=== PATIENT | male | born 1940 | race Caucasian/White ===

== ENCOUNTER 2016-11-25 07:32 | Outpatient (CLI) | payer MEDICARE, OTHER ==
[2016-11-25] MEDS ORDERED: GADOBUTROL 7.5 MMOL/7.5 ML VIAL IVP ONE (08:47)
== END 2016-11-25 07:33 | disposition home or self-care (01) ==
DX: R27.0 Ataxia, unspecified (principal)
CPT/HCPCS: 70553; A9585

== ENCOUNTER 2017-04-12 09:49 | Outpatient (CLI) | payer MEDICARE, OTHER ==
[2017-04-12 14:05] LABS: BASOPHILS % (AUTO) 0.6 %; EOSINOPHILS # (AUTO) 0.2 10^3/uL (0.0-0.7); EOSINOPHILS % (AUTO) 3.3 %; HCT - HEMATOCRIT 42.6 % (42.0-52.0); HGB - HEMOGLOBIN 14.4 g/dL (14.0-18.0); LYMPHOCYTES # (AUTO) 1.7 10^3/uL (1.5-3.5); LYMPHOCYTES % (AUTO) 25.2 %; MEAN CORPUSCULAR HEMOGLOBIN 27.6 pg (27.0-31.0); MEAN CORPUSCULAR HGB CONC 33.8 g/dL (32.0-36.0); MEAN CORPUSCULAR VOLUME 81.8 fL (80.0-94.0); MEAN PLATELET VOLUME 9.2 fL (7.4-11.4); MONOCYTES # (AUTO) 0.9 10^3/uL (0.0-1.0); MONOCYTES % (AUTO) 13.2 %; NEUTROPHILS # (AUTO) 3.9 10^3/uL (1.5-6.6); NEUTROPHILS % (AUTO) 57.7 %; NUCLEATED RED BLOOD CELLS AUTO 0.1 /100WBC; RED BLOOD COUNT 5.21 10^6/uL (4.70-6.10); RED CELL DISTRIBUTION WIDTH 15.4 % (12.0-15.0); UNCORRECTED WHITE BLOOD COUNT 6.9 x10^3/uL; WHITE BLOOD COUNT 6.9 x10^3/uL (4.8-10.8)
[2017-04-12 14:26] LABS: ALBUMIN/GLOBULIN RATIO 0.9 (1.0-2.2); BILIRUBIN,TOTAL 0.6 mg/dL (0.2-1.0); BUN - BLOOD UREA NITROGEN 17 mg/dL (6-20); CALCIUM 9.4 mg/dL (8.5-10.3); CARBON DIOXIDE - CO2 28 mmol/L (21-32); CHLORIDE 99 mmol/L (101-111); CHOL/HDL RATIO 2.7 (<5.0); CHOLESTEROL 154 mg/dL; CREATININE 1.1 mg/dL (0.6-1.2); GFR - MDRD 65 (>89); GLUCOSE 93 mg/dL (70-100); HDL CHOLESTEROL 58 mg/dL; LDL/HDL RATIO 1.4 (<3.6); SODIUM 135 mmol/L (135-145); TOTAL PROTEIN 8.3 g/dL (6.7-8.2); TRIGLYCERIDES 61 mg/dL; URIC ACID 4.3 mg/dL (2.6-7.2); VLDL CHOLESTEROL 12 mg/dL
== END 2017-04-12 09:50 | disposition home or self-care (01) ==
LOC: LAB.WCP 09:49
PROVIDERS: ATTEND Family Medicine
DX: E04.2 Nontoxic multinodular goiter (principal); I10 Essential (primary) hypertension; N28.9 Disorder of kidney and ureter, unspecified; E78.00 Pure hypercholesterolemia, unspecified; E79.0 Hyperuricemia without signs of inflammatory arthritis and tophaceous disease
CPT/HCPCS: 36415; 80053; 80061; 84443; 84550; 85025

== ENCOUNTER 2017-04-13 16:25 | Outpatient (CLI) | payer MEDICARE, OTHER ==
[2017-04-13] MEDS ORDERED: IOPAMIDOL-300 100 ML VIAL IVP ONE (17:02)
--- NOTE | 2017-04-14 13:51 | CT Report ---
EXAM: CT CHEST EXAM DATE: 04/13/2017 05:09 PM. CLINICAL HISTORY: Chronic cough. Shortness of breath. COMPARISONS: Previous exam of 01/10/2008. TECHNIQUE: Routine helical CT imaging was performed through the chest. IV contrast: 100 cc of Isovue-300. Recons tructions: Coronal and sagittal. In accordance with CT protocol optimization, one or more of the following dose reduction techniques w ere utilized for this exam: automated exposure control, adjustment of mA and/or KV based on patient s ize, or use of iterative reconstructive technique. FINDINGS: Lungs/Pleura: There is increased parenchymal scarring and honeycombing present compared to previous e xam. Increased reticular nodular markings are present. No pleural effusions seen. Mediastinum: Persistent adenopathy with calcification seen about the mediastinum and bilateral lizy. Heart size is within normal limits, with trace pericardial effusion. Bones: Unremarkable. Visualized Abdomen: Bilateral renal cysts are seen. Other: None. IMPRESSION: 1. Worsening pulmonary findings of sarcoidosis, with increased scarring and fibrosis with persistent adenopathy with calcified lymph nodes in the mediastinum and bilateral lizy. 2. Bilateral renal cysts present. [facility] Referring Provider Line: [phone] SITE ID: [id number]
== END 2017-04-13 16:26 | disposition home or self-care (01) ==
LOC: DI 16:25
PROVIDERS: ATTEND Physician Assistant Medical
DX: D86.0 Sarcoidosis of lung (principal); I89.8 Other specified noninfective disorders of lymphatic vessels and lymph nodes; N28.1 Cyst of kidney, acquired
CPT/HCPCS: 71260; Q9967

== ENCOUNTER 2017-06-22 07:44 | Outpatient (CLI) | payer MEDICARE, OTHER ==
--- NOTE | 2017-06-22 09:46 | Ultrasound Report ---
RIGHT LEG VENOUS DUPLEX: 06/22/2017 CLINICAL INDICATION: Palpable abnormality in calf, question phlebitis. TECHNIQUE: Real-time sonographic vascular imaging was performed by the top spotter through the right lower extremity utilizing both color flow and Doppler spectral analysis. Multiple packaging sales representative [facility] images were saved for review. FINDINGS: A right lower extremity venous sonogram is performed revealing the common femoral, superfi cial femoral, profunda femoris, and popliteal veins to be adequately visualized without intraluminal defects. There is normal venous compression, augmentation, phasicity, and spontaneity of venous flow . In the calf, the visualized more cephalad portions of posterior tibial and peroneal veins are gaston sly compressible, without filling defects. IMPRESSION: NO EVIDENCE OF DEEP VENOUS THROMBOSIS. JOB #: [id number] EXT JOB #:[id number]
--- NOTE | 2017-06-22 11:51 | Ultrasound Report ---
RIGHT LEG ARTERIAL DUPLEX: 06/22/2017 CLINICAL INDICATION: Palpable abnormality, question phlebitis. TECHNIQUE: Real-time sonographic vascular imaging was performed by the property supervisor through the lower extremities utilizing both color-flow and Doppler spectral analysis. Multiple union representative static images were saved for review. RIGHT SIDE SITE PSV WAVEFORM STEN SENIOR GAME DESIGNER 86 triphasic PSFA 82 triphasic MSFA 72 triphasic DSFA 89 triphasic PFA 64 biphasic POP 64 triphasic ALEXANDER 35 triphasic CEMENT [place]ON MAINTENANCE 54 triphasic PER 75 triphasic DPA 24 triphasic TECHNIQUE: Real-time scanning was performed. FINDINGS: Right leg: Waveforms are predominantly triphasic. There is no evidence of a focal velocity increase to suggest a hemodynamically significant stenosis. Scanning of the region of the palpable abnormality identified by the patient in the right calf demonstrates an avascular 2.5 x 0.8 x 0.4 cm structure that originates in the dermis, likely representing a sebaceous cyst. IMPRESSION: NO EVIDENCE OF A HEMODYNAMICALLY SIGNIFICANT ARTERIAL STENOSIS IN THE RIGHT LEG. LIKELY SEBACEOUS CYST ACCOUNTING FOR THE PALPABLE ABNORMALITY. MTDD
== END 2017-06-22 07:45 | disposition home or self-care (01) ==
LOC: DI 07:44
PROVIDERS: ATTEND Physician Assistant Medical
DX: I80.9 Phlebitis and thrombophlebitis of unspecified site (principal)

== ENCOUNTER 2017-07-27 08:13 | Outpatient (CLI) | payer MEDICARE, OTHER | END 2017-07-27 08:14 | disposition home or self-care (01) | LOC: DI 08:13 | PROVIDERS: ATTEND Physician Assistant Medical | DX: R06.09 Other forms of dyspnea (principal); R60.0 Localized edema | CPT/HCPCS: 93306 ==

== ENCOUNTER 2017-07-29 10:00 | Outpatient (CLI) | payer MEDICARE, OTHER ==
[2017-07-29 10:13] LABS: HCT - HEMATOCRIT 39.5 % (42.0-52.0); HGB - HEMOGLOBIN 13.4 g/dL (14.0-18.0); MEAN CORPUSCULAR HEMOGLOBIN 27.8 pg (27.0-31.0); MEAN CORPUSCULAR HGB CONC 34.1 g/dL (32.0-36.0); MEAN CORPUSCULAR VOLUME 81.5 fL (80.0-94.0); MEAN PLATELET VOLUME 7.4 fL (7.4-11.4); RED BLOOD COUNT 4.84 10^6/uL (4.70-6.10); RED CELL DISTRIBUTION WIDTH 14.4 % (12.0-15.0); WHITE BLOOD COUNT 9.3 x10^3/uL (4.8-10.8)
[2017-07-29 10:39] LABS: CALCIUM 9.1 mg/dL (8.5-10.3); CREATININE 1.1 mg/dL (0.6-1.2); POTASSIUM 3.8 mmol/L (3.5-5.0)
== END 2017-07-29 10:01 | disposition home or self-care (01) ==
LOC: LAB 10:00
PROVIDERS: ATTEND Physician Assistant Medical
DX: R60.0 Localized edema (principal); R06.09 Other forms of dyspnea
CPT/HCPCS: 36415; 80048; 83880

== ENCOUNTER 2018-03-18 18:44 | Outpatient (CLI) | payer MEDICARE, OTHER | END 2018-03-18 18:45 | disposition short-term general hospital (02) | LOC: EMS 18:44 | PROVIDERS: ATTEND Surgery | DX: R07.9 Chest pain, unspecified (principal); R06.02 Shortness of breath; R53.1 Weakness | CPT/HCPCS: A0425; A0427; A0888 ==

== ENCOUNTER 2018-04-25 14:05 | Outpatient (CLI) | payer MEDICARE, OTHER ==
[2018-04-25 18:53] LABS: BASOPHILS % (AUTO) 0.1 %; EOSINOPHILS % (AUTO) 3.1 %; LYMPHOCYTES % (AUTO) 10.6 %; MEAN CORPUSCULAR HGB CONC 31.9 g/dL (32.0-36.0); MEAN CORPUSCULAR VOLUME 81.6 fL (80.0-94.0); MEAN PLATELET VOLUME 7.9 fL (7.4-11.4); MONOCYTES % (AUTO) 11.1 %; NEUTROPHILS % (AUTO) 75.1 %; PLT - PLATELET COUNT 210 10^3/uL (130-450); RED BLOOD COUNT 4.61 10^6/uL (4.70-6.10); RED CELL DISTRIBUTION WIDTH 16.9 % (12.0-15.0); WHITE BLOOD COUNT 14.1 x10^3/uL (4.8-10.8)
[2018-04-25 19:05] LABS: ABNORMAL LYMPHS % (MANUAL) 0 %; BAND NEUTROPHILS % (MANUAL) 0 %
[2018-04-25 19:11] LABS: ALBUMIN 3.2 g/dL (3.2-5.5); ALBUMIN/GLOBULIN RATIO 0.9 (1.0-2.2); BILIRUBIN,TOTAL 0.5 mg/dL (0.2-1.0); CALCIUM 8.9 mg/dL (8.5-10.3); TOTAL PROTEIN 6.7 g/dL (6.7-8.2); URIC ACID 4.1 mg/dL (2.6-7.2)
[2018-04-25 19:24] LABS: EOSINOPHILS # (MANUAL) 0.3 10^3/uL (0-0.7); LYMPHOCYTES # (MANUAL) 1.1 10^3/uL (1.5-3.5); LYMPHOCYTES % (MANUAL) 8 %; MONOCYTES # (MANUAL) 0.8 10^3/uL (0.0-1.0); NEUTROPHILS # (MANUAL) 11.8 10^3/uL (1.5-6.6); NEUTROPHILS % (MANUAL) 84 %
[2018-04-25 19:25] LABS: DIFFERENTIAL COMMENT MANUAL DIFFERENTIAL; PLATELET ESTIMATE, MANUAL NORMAL (130-450,000) (NORMAL); PLATELET MORPHOLOGY NORMAL APPEARANCE (NORMAL); RBC MORPHOLOGY (MULTIPLE) 1+ ANISOCYTOSIS (NORMAL)
== END 2018-04-25 14:06 | disposition home or self-care (01) ==
LOC: LAB.WCP 14:05
PROVIDERS: ATTEND Family Medicine
DX: M25.561 Pain in right knee (principal)
CPT/HCPCS: 36415; 80053; 84550; 85025

== ENCOUNTER 2018-08-30 08:00 | Outpatient (CLI) | payer MEDICARE, OTHER ==
[2018-08-30 19:23] LABS: CALCIUM 8.9 mg/dL (8.5-10.3)
== END 2018-08-30 08:01 | disposition home or self-care (01) ==
LOC: LAB.WCP 08:00
PROVIDERS: ATTEND Physician Assistant
DX: R60.0 Localized edema (principal)
CPT/HCPCS: 36415; 80048

== ENCOUNTER 2019-03-11 14:08 | Outpatient (CLI) | payer MEDICARE, OTHER ==
[2019-03-11 19:17] LABS: BASOPHILS % (AUTO) 0.2 %; EOSINOPHILS % (AUTO) 0.4 %; LYMPHOCYTES # (AUTO) 1.4 10^3/uL (1.5-3.5); LYMPHOCYTES % (AUTO) 12.5 %; MEAN CORPUSCULAR HEMOGLOBIN 22.1 pg (27.0-31.0); MEAN CORPUSCULAR HGB CONC 30.9 g/dL (32.0-36.0); MEAN CORPUSCULAR VOLUME 71.5 fL (80.0-94.0); MEAN PLATELET VOLUME 8.5 fL (7.4-11.4); MONOCYTES # (AUTO) 0.7 10^3/uL (0.0-1.0); MONOCYTES % (AUTO) 6.4 %; NEUTROPHILS % (AUTO) 80.5 %; PLT - PLATELET COUNT 201 10^3/uL (130-450); RED BLOOD COUNT 4.97 10^6/uL (4.70-6.10); RED CELL DISTRIBUTION WIDTH 19.8 % (12.0-15.0); WHITE BLOOD COUNT 11.2 x10^3/uL (4.8-10.8)
[2019-03-11 19:41] LABS: ALBUMIN 3.3 g/dL (3.2-5.5); ALBUMIN/GLOBULIN RATIO 0.8 (1.0-2.2); ALKALINE PHOSPHATASE 48 IU/L (42-121); ALT ALANINE AMINOTRANSFERASE < 10 IU/L (10-60); AST ASPARTATE AMINOTRANSFERASE 20 IU/L (10-42); BILIRUBIN,TOTAL 0.4 mg/dL (0.2-1.0); BUN - BLOOD UREA NITROGEN 15 mg/dL (6-20); CALCIUM 8.8 mg/dL (8.5-10.3); CARBON DIOXIDE - CO2 28 mmol/L (21-32); CHLORIDE 98 mmol/L (101-111); GFR - MDRD 72 (>89); GLUCOSE 130 mg/dL (70-100); SODIUM 138 mmol/L (135-145); TOTAL PROTEIN 7.7 g/dL (6.7-8.2); URIC ACID 4.9 mg/dL (2.6-7.2)
== END 2019-03-11 14:09 | disposition home or self-care (01) ==
LOC: LAB.WCP 14:08
PROVIDERS: ATTEND Family Medicine
DX: I10 Essential (primary) hypertension (principal); D86.9 Sarcoidosis, unspecified
CPT/HCPCS: 36415; 80053; 84443; 84550; 85025

== ENCOUNTER 2019-03-14 08:00 | Outpatient (CLI) | payer MEDICARE, OTHER ==
[2019-03-14 19:45] LABS: % IRON SATURATION 5 % (20-50); IRON 17 ug/dL (45-182); TOTAL IRON BINDING CAPACITY 336 ug/dL (250-450); TRANSFERRIN 240 mg/dL (180-329)
== END 2019-03-14 23:59 | disposition home or self-care (01) ==
LOC: LAB.WCP 08:00
PROVIDERS: ATTEND Family Medicine
DX: D50.9 Iron deficiency anemia, unspecified (principal)
CPT/HCPCS: 36415; 82728; 83540; 84466

== ENCOUNTER 2019-03-28 13:56 | Outpatient (CLI) | payer MEDICARE, OTHER ==
--- NOTE | 2019-03-28 15:28 | XRAY Report ---
Reason: COUGH Procedure Date: 03/28/2019 Accession Number: [id number] / [id number] Procedure: WCP - Chest 2 View X-Ray CPT Code: 35710 FULL RESULT: EXAM: CHEST RADIOGRAPHY EXAM DATE: 03/28/2019 02:09 PM. CLINICAL HISTORY: Cough. COMPARISON: CHEST W/ 04/13/2017 4:58 PM. TECHNIQUE: 2 views. FINDINGS: Lungs/Pleura: Increased interstitial lung markings most pronounced at the upper right lung corresponds to known fibrotic lung disease. Soft tissue fullness at the right hilum is again seen, is difficult to determine whether this has increased accounting for differences in modality. No pleural effusion is detected. No pneumothorax. Underlying pneumonia is difficult to exclude. Mediastinum: The cardiomediastinal silhouette is not enlarged and stable in contour. Other: None. IMPRESSION: Fibrotic lung disease with persistent soft tissue fullness of the right hilum. Given that acute pneumonia as well as development of a mass in the right hilar region are difficult to exclude, recommend consideration for chest CT. [facility]
== END 2019-03-28 13:57 | disposition home or self-care (01) ==
LOC: DI.WCP 13:56
PROVIDERS: ATTEND Family Medicine
DX: J84.10 Pulmonary fibrosis, unspecified (principal)
CPT/HCPCS: 71046

== ENCOUNTER 2019-03-31 07:37 | Outpatient (CLI) | payer MEDICARE, OTHER ==
[2019-03-31] MEDS ORDERED: IOVERSOL 320 100 ML VIAL IVP ONE ×3 (07:38→12:11)
--- NOTE | 2019-03-31 10:09 | CT Report ---
Reason: LUNG MASS Procedure Date: 03/31/2019 Accession Number: [id number] / [id number] Procedure: CT - CHEST W CPT Code: FULL RESULT: EXAM: CT CHEST EXAM DATE: 03/31/2019 08:26 AM. CLINICAL HISTORY: LUNG MASS. History of sarcoidosis COMPARISONS: CHEST W/ 04/13/2017 4:58 PM CHEST 2 VIEW 03/28/2019 1:48 PM COMPLETE 07/27/2017 8:32 AM. TECHNIQUE: Routine helical CT imaging was performed through the chest. IV contrast: None. Reconstructions: Coronal and sagittal. In accordance with CT protocol optimization, one or more of the following dose reduction techniques were utilized for this exam: automated exposure control, adjustment of mA and/or KV based on patient size, or use of iterative reconstructive technique. FINDINGS: Lungs/Pleura: Bilateral areas of honeycombing, bronchiectasis, septal thickening. There are bilateral areas of linear banding. Chronic atelectasis in the right middle lobe. Areas of scarring bilaterally. Groundglass areas bilaterally. Subpleural reticulations. Findings are more prominent in the upper lung culver. No significant change since previous. No effusion. No pneumothorax. Mediastinum: Large mediastinal lymph nodes with calcifications including 2.2 cm prevascular, 1.7 cm right paratracheal, 2.4 cm precarinal, 2.8 cm azygos esophageal recess lymph nodes. Bilateral calcified hilar lymph nodes. Enlarged pulmonary artery suggestive of pulmonary artery hypertension. Moderate to severe coronary artery calcifications. No pericardial effusion. Bones: DJD spine Visualized Abdomen: Bilateral renal cysts 4.8 cm right, 3.2 cm left. Other: None. IMPRESSION: 1. 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 2. Bilateral renal cysts [facility]
== END 2019-03-31 07:38 | disposition home or self-care (01) ==
LOC: DI 07:37
PROVIDERS: ATTEND Family Medicine
DX: D86.9 Sarcoidosis, unspecified (principal); J84.10 Pulmonary fibrosis, unspecified; R59.0 Localized enlarged lymph nodes; N28.1 Cyst of kidney, acquired
CPT/HCPCS: 71260; Q9967

== ENCOUNTER 2019-05-08 09:00 | Outpatient (CLI) | payer MEDICARE, OTHER ==
[2019-05-08 12:51] LABS: T4 (THYROXINE) 8.62 ug/dL (6.09-12.23)
[2019-05-08 12:55] LABS: THYROID STIMULATING HORMONE 1.13 uIU/mL (0.34-5.60)
== END 2019-05-08 09:01 | disposition home or self-care (01) ==
LOC: LAB.WCP 09:00
PROVIDERS: ATTEND Family Medicine
DX: R22.1 Localized swelling, mass and lump, neck (principal); E04.2 Nontoxic multinodular goiter; I10 Essential (primary) hypertension
CPT/HCPCS: 36415; 84436; 84443; 84481

== ENCOUNTER 2019-05-10 13:13 | Outpatient (CLI) | payer MEDICARE, OTHER ==
--- NOTE | 2019-05-12 12:32 | Ultrasound Report ---
Reason: NECK SWELLING Procedure Date: 05/10/2019 Accession Number: [id number] / [id number] Procedure: US - Head or Neck Soft Tissue CPT Code: FULL RESULT: EXAM: THYROID ULTRASOUND EXAM DATE: 05/10/2019 02:15 PM. CLINICAL HISTORY: Neck swelling. COMPARISON: CHEST W/ 03/31/2019 8:25 AM. TECHNIQUE: Real time sonographic imaging of the thyroid was performed by the program services assistant. Multiple sales representative [employer] static images were saved for review. FINDINGS: THYROID GLAND: Right Lobe: 3.7 x 2.0 x 1.4 cm, volume 5.1 cc. Parenchymal background demonstrates mildly heterogeneous echotexture. Right Lobe Nodules: 0.3 cm upper pole cyst, 0.5 x 0.4 x 0.5 cm hypoechoic well-circumscribed midpole nodule, 0.3 hypoechoic lower pole nodule, possibly cyst. Left Lobe: 4.3 x 2.0 x 1.7 cm, volume 6.8 cc. Parenchymal background demonstrates mildly heterogeneous echotexture. Left Lobe Nodules: 1.1 x 0.6 x 0.9 cm cyst. 0.2 cm hypoechoic cyst versus nodule and inferior pole 0.3 cm hypoechoic nodule. Isthmus: 0.7 cm AP. Isthmic Nodules: None. LYMPH NODES: No adenopathy demonstrated in the central or lateral compartment. OTHER: None. IMPRESSION: Very low suspicion and low suspicion nodules as above do not warrant tissue sampling by FNA at this time. Management recommendations are based on 2015 [place] [employer] Management Guidelines for Adult Patients with Thyroid Nodules and Differentiated Thyroid Cancer. [facility]
== END 2019-05-10 13:14 | disposition home or self-care (01) ==
LOC: DI 13:13
PROVIDERS: ATTEND Family Medicine
DX: E04.1 Nontoxic single thyroid nodule (principal)
CPT/HCPCS: 76536

== ENCOUNTER 2020-05-13 15:22 | Outpatient (CLI) | payer MEDICARE, OTHER ==
--- NOTE | 2020-05-13 16:22 | XRAY Report ---
Reason: SHORTNESS OF BREATH Procedure Date: 05/13/2020 Accession Number: [id number] / [id number] Procedure: WCP - Chest 2 View X-Ray CPT Code: 47648 Final Report FULL RESULT: PROCEDURE: Chest 2 View X-Ray INDICATIONS: SHORTNESS OF BREATH TECHNIQUE: 2 view(s) of the chest. COMPARISON: Chest x-ray examination dated 03.28.19 FINDINGS: Surgical changes and devices: None. Lungs and pleura: No pleural effusions or pneumothorax. There is moderate bilateral upper lobe predominant interstitial pulmonary opacity, as before. No definite superimposed acute infiltrate. Mediastinum: Mediastinal contours are normal. Heart size is normal. Bones and chest wall: No suspicious bony abnormalities. Soft tissues appear unremarkable. IMPRESSION: 1. Moderate chronic interstitial lung disease. 2. No acute process. Reviewed by: Serg Dominguez MD on 05/13/2020 4:21 PM PDT Approved by: Serg Dominguez MD on 05/13/2020 4:21 PM PDT Station ID: [id number]
== END 2020-05-13 23:59 | disposition home or self-care (01) ==
LOC: DI.WCP 15:22
PROVIDERS: ATTEND Nurse Practitioner Family
DX: J84.9 Interstitial pulmonary disease, unspecified (principal)
CPT/HCPCS: 36415; 71046; 80053; 83880; 85025

== ENCOUNTER 2020-05-26 10:58 | Outpatient (CLI) | payer MEDICARE, OTHER ==
[2020-05-26 18:43] LABS: BASOPHILS % (AUTO) 0.5 %; EOSINOPHILS # (AUTO) 0.3 10^3/uL (0.0-0.7); EOSINOPHILS % (AUTO) 3.7 %; HGB - HEMOGLOBIN 12.6 g/dL (14.0-18.0); LYMPHOCYTES # (AUTO) 1.7 10^3/uL (1.5-3.5); LYMPHOCYTES % (AUTO) 19.3 %; MEAN CORPUSCULAR HEMOGLOBIN 25.4 pg (27.0-31.0); MEAN CORPUSCULAR HGB CONC 30.7 g/dL (32.0-36.0); MEAN CORPUSCULAR VOLUME 82.5 fL (80.0-94.0); MEAN PLATELET VOLUME 10.3 fL (7.4-11.4); MONOCYTES # (AUTO) 1.1 10^3/uL (0.0-1.0); MONOCYTES % (AUTO) 11.8 %; NEUTROPHILS # (AUTO) 5.7 10^3/uL (1.5-6.6); NEUTROPHILS % (AUTO) 64.1 %; PLT - PLATELET COUNT 243 10^3/uL (130-450); RED BLOOD COUNT 4.97 10^6/uL (4.70-6.10); RED CELL DISTRIBUTION WIDTH 15.5 % (12.0-15.0); WHITE BLOOD COUNT 8.9 x10^3/uL (4.8-10.8)
[2020-05-26 19:27] LABS: ALBUMIN 3.3 g/dL (3.2-5.5); ALBUMIN/GLOBULIN RATIO 0.8 (1.0-2.2); ALKALINE PHOSPHATASE 49 IU/L (42-121); ALT ALANINE AMINOTRANSFERASE < 10 IU/L (10-60); AST ASPARTATE AMINOTRANSFERASE 17 IU/L (10-42); BILIRUBIN,TOTAL 0.6 mg/dL (0.2-1.0); BUN - BLOOD UREA NITROGEN 13 mg/dL (6-20); CALCIUM 8.8 mg/dL (8.5-10.3); CARBON DIOXIDE - CO2 32 mmol/L (21-32); CHLORIDE 98 mmol/L (101-111); GLUCOSE 93 mg/dL (70-100); SODIUM 139 mmol/L (135-145); TOTAL PROTEIN 7.6 g/dL (6.7-8.2)
== END 2020-05-26 23:59 | disposition home or self-care (01) ==
LOC: LAB.WCP 10:58
PROVIDERS: ATTEND Nurse Practitioner Family
DX: I10 Essential (primary) hypertension (principal); D50.9 Iron deficiency anemia, unspecified; R60.0 Localized edema
CPT/HCPCS: 36415; 80053; 83880; 85025

== ENCOUNTER 2020-07-23 09:03 | Outpatient (CLI) | payer MEDICARE, OTHER ==
[2020-07-23 11:34] LABS: HGB - HEMOGLOBIN 13.3 g/dL (14.0-18.0); MEAN CORPUSCULAR HEMOGLOBIN 26.7 pg (27.0-31.0); MEAN CORPUSCULAR HGB CONC 32.8 g/dL (32.0-36.0); MEAN CORPUSCULAR VOLUME 81.2 fL (80.0-94.0); RED BLOOD COUNT 4.99 10^6/uL (4.70-6.10); RED CELL DISTRIBUTION WIDTH 15.9 % (12.0-15.0); WHITE BLOOD COUNT 8.7 x10^3/uL (4.8-10.8)
[2020-07-23 12:14] LABS: CALCIUM 8.6 mg/dL (8.5-10.3)
== END 2020-07-23 23:59 | disposition home or self-care (01) ==
LOC: LAB.WCP 09:03
PROVIDERS: ATTEND Family Medicine
DX: R06.09 Other forms of dyspnea (principal)
CPT/HCPCS: 36415; 80048; 83880; 85027

== ENCOUNTER 2021-03-22 08:00 | Outpatient (CLI) | payer MEDICARE, OTHER ==
[2021-03-22 12:10] LABS: BASOPHILS # (AUTO) 0.1 10^3/uL (0.0-0.1); BASOPHILS % (AUTO) 0.6 %; EOSINOPHILS # (AUTO) 0.3 10^3/uL (0.0-0.7); HCT - HEMATOCRIT 43.8 % (42.0-52.0); HGB - HEMOGLOBIN 13.3 g/dL (14.0-18.0); LYMPHOCYTES # (AUTO) 1.7 10^3/uL (1.5-3.5); LYMPHOCYTES % (AUTO) 22.5 %; MEAN CORPUSCULAR HEMOGLOBIN 24.2 pg (27.0-31.0); MEAN CORPUSCULAR HGB CONC 30.4 g/dL (32.0-36.0); MEAN CORPUSCULAR VOLUME 79.6 fL (80.0-94.0); MEAN PLATELET VOLUME 10.6 fL (7.4-11.4); MONOCYTES # (AUTO) 0.9 10^3/uL (0.0-1.0); MONOCYTES % (AUTO) 12.2 %; NEUTROPHILS # (AUTO) 4.6 10^3/uL (1.5-6.6); NEUTROPHILS % (AUTO) 60.3 %; PLT - PLATELET COUNT 197 10^3/uL (130-450); RED CELL DISTRIBUTION WIDTH 17.8 % (12.0-15.0); WHITE BLOOD COUNT 7.7 x10^3/uL (4.8-10.8)
[2021-03-22 12:28] LABS: ALBUMIN 3.6 g/dL (3.2-5.5); ALBUMIN/GLOBULIN RATIO 0.9 (1.0-2.2); ALKALINE PHOSPHATASE 47 IU/L (42-121); ALT ALANINE AMINOTRANSFERASE 11 IU/L (10-60); AST ASPARTATE AMINOTRANSFERASE 21 IU/L (10-42); BILIRUBIN,TOTAL 0.6 mg/dL (0.2-1.0); BUN - BLOOD UREA NITROGEN 12 mg/dL (6-20); CALCIUM 9.1 mg/dL (8.5-10.3); CARBON DIOXIDE - CO2 34 mmol/L (21-32); CHLORIDE 99 mmol/L (101-111); CHOLESTEROL 188 mg/dL; CREATININE 0.9 mg/dL (0.6-1.2); GFR - MDRD 81 (>89); GLUCOSE 86 mg/dL (70-100); HDL CHOLESTEROL 95 mg/dL; SODIUM 142 mmol/L (135-145); TOTAL PROTEIN 7.6 g/dL (6.7-8.2); TRIGLYCERIDES 37 mg/dL; URIC ACID 4.6 mg/dL (2.6-7.2)
[2021-03-22 12:37] LABS: THYROID STIMULATING HORMONE 1.09 uIU/mL (0.34-5.60)
[2021-03-22 12:40] LABS: ESTIMATED AVERAGE GLUCOSE 120 mg/dL (70-100); HEMOGLOBIN A1c% 5.8 % (4.27-6.07)
[2021-03-22 12:49] LABS: CREATININE,URINE 48.6 mg/dL; MICROALBUM/CREATININE RATIO,UR 47.3 ug/mg (<30.0); MICROALBUMIN,URINE 2.3 mg/dL (0-300.0)
== END 2021-03-22 23:59 | disposition home or self-care (01) ==
LOC: LAB.WCP 08:00
PROVIDERS: ATTEND Internal Medicine
DX: I10 Essential (primary) hypertension (principal); E79.0 Hyperuricemia without signs of inflammatory arthritis and tophaceous disease; D86.9 Sarcoidosis, unspecified; E04.2 Nontoxic multinodular goiter; G62.9 Polyneuropathy, unspecified; Z79.52 Long term (current) use of systemic steroids
CPT/HCPCS: 36415; 80053; 80061; 82043; 82306; 82570; 82607; 83036; 83721; 84443; 84550; 85025

== ENCOUNTER 2021-06-27 10:08 | Outpatient (CLI) | payer MEDICARE, OTHER | END 2021-06-27 10:09 | disposition short-term general hospital (02) | LOC: EMS 10:08 | DX: R06.82 Tachypnea, not elsewhere classified (principal) | CPT/HCPCS: A0425; A0429 ==

== ENCOUNTER 2022-03-13 08:18 | Outpatient (CLI) | payer MEDICARE, OTHER ==
[2022-03-13 12:19] LABS: BASOPHILS % (AUTO) 0.2 %; EOSINOPHILS # (AUTO) 0.1 10^3/uL (0.0-0.7); EOSINOPHILS % (AUTO) 1.2 %; HGB - HEMOGLOBIN 13.1 g/dL (14.0-18.0); LYMPHOCYTES # (AUTO) 1.6 10^3/uL (1.5-3.5); LYMPHOCYTES % (AUTO) 19.4 %; MEAN CORPUSCULAR HEMOGLOBIN 26.2 pg (27.0-31.0); MEAN CORPUSCULAR HGB CONC 29.1 g/dL (32.0-36.0); MEAN PLATELET VOLUME 11.8 fL (7.4-11.4); MONOCYTES # (AUTO) 0.9 10^3/uL (0.0-1.0); MONOCYTES % (AUTO) 10.2 %; NEUTROPHILS # (AUTO) 5.8 10^3/uL (1.5-6.6); NEUTROPHILS % (AUTO) 68.8 %; PLT - PLATELET COUNT 148 10^3/uL (130-450); RED CELL DISTRIBUTION WIDTH 14.5 % (12.0-15.0); WHITE BLOOD COUNT 8.4 x10^3/uL (4.8-10.8)
[2022-03-13 12:43] LABS: THYROID STIMULATING HORMONE 0.99 uIU/mL (0.34-5.60)
[2022-03-13 13:16] LABS: ESTIMATED AVERAGE GLUCOSE 128 mg/dL (70-100); HEMOGLOBIN A1c% 6.1 % (4.27-6.07)
[2022-03-13 13:49] LABS: ALBUMIN 3.2 g/dL (3.2-5.5); ALBUMIN/GLOBULIN RATIO 0.8 (1.0-2.2); ALKALINE PHOSPHATASE 52 IU/L (42-121); ALT ALANINE AMINOTRANSFERASE < 10 IU/L (10-60); AST ASPARTATE AMINOTRANSFERASE 16 IU/L (10-42); BILIRUBIN,TOTAL 0.5 mg/dL (0.2-1.0); BUN - BLOOD UREA NITROGEN 12 mg/dL (6-20); CHLORIDE 90 mmol/L (101-111); CHOL/HDL RATIO 2.3 (<5.0); CHOLESTEROL 159 mg/dL; CREATININE 0.9 mg/dL (0.6-1.2); GFR - MDRD 81 (>89); GLUCOSE 101 mg/dL (70-100); HDL CHOLESTEROL 68 mg/dL; LDL CHOLESTEROL,CALCULATED 82 mg/dL; LDL/HDL RATIO 1.2 (<3.6); POTASSIUM 4.1 mmol/L (3.5-5.0); SODIUM 141 mmol/L (135-145); TRIGLYCERIDES 43 mg/dL; VLDL CHOLESTEROL 9 mg/dL
[2022-03-13 13:51] LABS: CARBON DIOXIDE - CO2 41 mmol/L (21-32)
== END 2022-03-13 08:19 | disposition home or self-care (01) ==
LOC: LAB.N 08:18
PROVIDERS: ATTEND Internal Medicine
DX: I10 Essential (primary) hypertension (principal); D50.9 Iron deficiency anemia, unspecified; E04.2 Nontoxic multinodular goiter; E78.5 Hyperlipidemia, unspecified; Z79.52 Long term (current) use of systemic steroids; D86.0 Sarcoidosis of lung
CPT/HCPCS: 36415; 80053; 80061; 82306; 83036; 83721; 84443; 85025

== ENCOUNTER 2022-09-10 00:31 | Outpatient (CLI) | payer MEDICARE, OTHER | END 2022-09-10 00:32 | disposition short-term general hospital (02) | LOC: EMS 00:31 | DX: R06.02 Shortness of breath (principal) | CPT/HCPCS: A0425; A0427 ==

== ENCOUNTER 2022-09-11 11:21 | Outpatient (CLI) | payer MEDICARE, OTHER | END 2022-09-11 11:22 | disposition critical access hospital (66) | LOC: EMS 11:21 | DX: R40.0 Somnolence (principal); R06.82 Tachypnea, not elsewhere classified; R09.89 Other specified symptoms and signs involving the circulatory and respiratory systems; I49.9 Cardiac arrhythmia, unspecified; R61 Generalized hyperhidrosis; R60.0 Localized edema; Z99.81 Dependence on supplemental oxygen | CPT/HCPCS: A0425; A0427 ==

== ENCOUNTER 2022-09-11 11:23 | Emergency (ER) | payer MEDICARE, OTHER ==
--- OUTSIDE RECORDS SUMMARY | 2022-09-11 11:29 | EXTERNAL MEDICAL SUMMARY RPT | Continuity of Care Document ---
:1940 Author Organization [facility] Address [address] [place] [address] Phone Allergies and Intolerances date description facility type (no date) No Known Drug Allergies [facility] (unkn own) Encounters No information. Functional Status No information. Immunizations No information. Medications No information. Problems No information. Procedures No information. Results/Labs test date author facility value unit interpret ation Result panel 1 (unknown) (no (unknown) (unknown) (no value) (units (unk nown) date) unknown) (unknown) (no (unknown) (unknown) [id number] (units (unkno wn) date) unknown) (unknown) (no (unknown) (unknown) 12/08/21 the (units (un known) date) degree of unknown) interstitial lung disease does not appear to have (unknown) (no (unknown) (unknown) 09/10/22 (units (unkno wn) date) unknown) (unknown) (no (unknown) (unknown) [address] [place] [address] (units (unknown) date) unknown) (unknown) (no (unknown) (unknown) Accession (units (unkn own) date) Number: unknown) [id number] (unknown) (no (unknown) (unknown) Age/Sex: 82 / M (units (unknown) date) Date of Service: unknown) (unknown) (no (unknown) (unknown) [place], [place] (units ( unknown) date) [id number] unknown) (unknown) (no (unknown) (unknown) Approved by: (units (u nknown) date) brandie Logan M.D. on 09/10/2022 at 1:58 (unknown) (no (unknown) (unknown) Bones and chest (units (unknown) date) wall: No unknown) suspicious bony lesions. Overlying soft tissues (unknown) (no (unknown) (unknown) COMPARISON: (units (un known) date) Outside Film, CR, unknown) XR CHEST 1 VIEW, 12/08/2021, 14:22. (unknown) (no (unknown) (unknown) : 1940 (units (unknown) date) Acct:[id number] unknown) (unknown) (no (unknown) (unknown) Dictated by: (units (u nknown) date) Guanaco Salomon unknownThong Rosario on 09/10/2022 at 1:57 (unknown) (no (unknown) (unknown) FINDINGS: (units (unkn own) date) unknown) (unknown) (no (unknown) (unknown) IMPRESSION: (units (un known) date) Chronic unknown) interstitial lung disease, moderately severe, accentuated (unknown) (no (unknown) (unknown) INDICATIONS: SOB (units (unknown) date) unknown) (unknown) (no (unknown) (unknown) [facility] (units (unknown) date) unknown) (unknown) (no (unknown) (unknown) Loc: ED (units (unkno wn) date) unknown) (unknown) (no (unknown) (unknown) Lungs and (units (unkn own) date) pleura: Lungs are unknown) abnormal with a chronic interstitial lung disease (unknown) (no (unknown) (unknown) Mediastinum: (units (u nknown) date) Mediastinal unknown) contours appear normal. Heart size is normal. (unknown) (no (unknown) (unknown) Ordering (units (unkno wn) date) Provider: unknown) Jesus Krishna D.O. (unknown) (no (unknown) (unknown) PROCEDURE: XR (units ( unknown) date) CHEST 1V unknown) (unknown) (no (unknown) (unknown) Patient: (units (unkno wn) date) Ellen Avendano unknown) MR#: [id number] (unknown) (no (unknown) (unknown) Procedure: XR (units ( unknown) date) chest 1V unknown) (unknown) (no (unknown) (unknown) Signed (units (unkno wn) date) unknown) (unknown) (no (unknown) (unknown) Surgical changes (units (unknown) date) and devices: unknown) None. (unknown) (no (unknown) (unknown) TECHNIQUE: One (units (unknown) date) view of the chest unknown) was acquired. (unknown) (no (unknown) (unknown) XRay Report (units (un known) date) unknown) (unknown) (no (unknown) (unknown) and reduced (units (un known) date) inspiratory unknown) volume bilaterally. With reference to the comparison (unknown) (no (unknown) (unknown) appear (units (unkno wn) date) unknown) (unknown) (no (unknown) (unknown) by current (units (unk nown) date) unknown) (unknown) (no (unknown) (unknown) pattern (units (unkno wn) date) unknown) (unknown) (no (unknown) (unknown) pneumothorax. (units ( unknown) date) unknown) (unknown) (no (unknown) (unknown) reduced (units (unkno wn) date) inspiratory unknown) volume. (unknown) (no (unknown) (unknown) significantly (units ( unknown) date) unknown) (unknown) (no (unknown) (unknown) study from (units (unk nown) date) unknown) (unknown) (no (unknown) (unknown) unremarkable. (units ( unknown) date) unknown) (unknown) (no (unknown) (unknown) worsened (units (unkno wn) date) considering unknown) reduced inspiratory volume. No pleural effusions or Result panel 2 (unknown) (no (unknown) (unknown) (no value) (units (unk nown) date) unknown) (unknown) (no (unknown) (unknown) (120 mg-180 mg) (units (unknown) date) capsule unknown) (unknown) (no (unknown) (unknown) (2.5 mg base)/3 (units (unknown) date) mL nebulization Of unknown) Breath (unknown) (no (unknown) (unknown) (DME) crutch (units (u nknown) date) accessories misc unknown) (unknown) (no (unknown) (unknown) (Tessalon Perles) (units (unknown) date) unknown) (unknown) (no (unknown) (unknown) [id number] (units (unkno wn) date) unknown) (unknown) (no (unknown) (unknown) 06/27/21 (units (unkno wn) date) unknown) (unknown) (no (unknown) (unknown) 1 cap PO QHS (units (u nknown) date) unknown) (unknown) (no (unknown) (unknown) 1 mg PO BID (units (un known) date) unknown) (unknown) (no (unknown) (unknown) 100 mg PO BID (units ( unknown) date) Qty: 14 0RF unknown) (unknown) (no (unknown) (unknown) 100 mg PO TID PRN (units (unknown) date) (Reason: cough) unknown) Qty: 30 0RF (unknown) (no (unknown) (unknown) 2 ml INHALATION (units (unknown) date) Q6HR PRN (Reason: unknown) Shortness Of Breath) (unknown) (no (unknown) (unknown) 40 mg PO DAILY (units (unknown) date) Qty: 4 0RF unknown) (unknown) (no (unknown) (unknown) 400 unit PO DAILY (units (unknown) date) unknown) (unknown) (no (unknown) (unknown) 5 mg PO QPM (units (un known) date) unknown) (unknown) (no (unknown) (unknown) 500 mcg PO DAILY (units (unknown) date) unknown) (unknown) (no (unknown) (unknown) 6.25 mg PO BID (units (unknown) date) unknown) (unknown) (no (unknown) (unknown) 60 mg PO BID (units (u nknown) date) unknown) (unknown) (no (unknown) (unknown) 75 mcg PO DAILY (units (unknown) date) unknown) (unknown) (no (unknown) (unknown) 81 mg PO DAILY (units (unknown) date) unknown) (unknown) (no (unknown) (unknown) Age/Sex: 82 / M (units (unknown) date) unknown) (unknown) (no (unknown) (unknown) Allergies (units (unkn own) date) unknown) (unknown) (no (unknown) (unknown) Allergy/AdvReac (units (unknown) date) Type Severity unknown) Reaction Status Date / Time (unknown) (no (unknown) (unknown) As directed (units (un known) date) unknown) (unknown) (no (unknown) (unknown) Vicente Mckeon (units ( unknown) date) MD Angel unknown) [Primary Care Provider] (unknown) (no (unknown) (unknown) Chief complaint: (units (unknown) date) Shortness of unknown) Breath/Dyspnea (unknown) (no (unknown) (unknown) Chronic (units (unkno wn) date) respiratory unknown) failure with hypoxia (unknown) (no (unknown) (unknown) : 1940 (units (unknown) date) Acct:[id number] unknown) (unknown) (no (unknown) (unknown) Date of Service: (units (unknown) date) 09/10/22 unknown) (unknown) (no (unknown) (unknown) Departure (units (unkn own) date) unknown) (unknown) (no (unknown) (unknown) Discharge Plan (units (unknown) date) unknown) (unknown) (no (unknown) (unknown) Dose Instruction: (units (unknown) date) unknown) (unknown) (no (unknown) (unknown) Dyslipidemia (units (u nknown) date) unknown) (unknown) (no (unknown) (unknown) ER Physician: (units ( unknown) date) Jesus Krishna unknown) D.O. (unknown) (no (unknown) (unknown) Emergency Report (units (unknown) date) unknown) (unknown) (no (unknown) (unknown) Family History (units (unknown) date) (Reviewed 06/27/21 unknown) @ 18:35 by Sterling Martin DO) (unknown) (no (unknown) (unknown) General (units (unkno wn) date) unknown) (unknown) (no (unknown) (unknown) HPI - General (units ( unknown) date) Adult unknown) (unknown) (no (unknown) (unknown) Home Medications (units (unknown) date) unknown) (unknown) (no (unknown) (unknown) Hypertension (units (u nknown) date) unknown) (unknown) (no (unknown) (unknown) Hypothyroidism (units (unknown) date) unknown) (unknown) (no (unknown) (unknown) [facility] (units (unknown) date) [address] unknown) [place] [address] (unknown) (no (unknown) (unknown) Label Comments: (units (unknown) date) unknown) (unknown) (no (unknown) (unknown) Medical History (units (unknown) date) (Reviewed 06/27/21 unknown) @ 18:35 by Sterling Martin DO) (unknown) (no (unknown) (unknown) Medication (units (unk nown) date) Instructions unknown) Recorded Confirmed (unknown) (no (unknown) (unknown) Medication (units (unk nown) date) Instructions unknown) Recorded (unknown) (no (unknown) (unknown) Mother Diabetes (units (unknown) date) mellitus unknown) (unknown) (no (unknown) (unknown) No Action (units (unkn own) date) unknown) (unknown) (no (unknown) (unknown) No Known Drug (units ( unknown) date) Allergies Allergy unknown) Verified 09/10/22 01:26 (unknown) (no (unknown) (unknown) No pertinent past (units (unknown) date) surgical history unknown) (unknown) (no (unknown) (unknown) Paroxysmal atrial (units (unknown) date) fibrillation unknown) (unknown) (no (unknown) (unknown) Patient History (units (unknown) date) unknown) (unknown) (no (unknown) (unknown) Patient: (units (unkno wn) date) Ellen Avendano unknown) MR#: [id number] (unknown) (no (unknown) (unknown) Prescriptions: (units (unknown) date) unknown) (unknown) (no (unknown) (unknown) Previous Rx's (units ( unknown) date) unknown) (unknown) (no (unknown) (unknown) Pulmonary (units (unkn own) date) embolism unknown) (unknown) (no (unknown) (unknown) Referrals: (units (unk nown) date) unknown) (unknown) (no (unknown) (unknown) Related Data (units (u nknown) date) unknown) (unknown) (no (unknown) (unknown) Rx Instructions: (units (unknown) date) unknown) (unknown) (no (unknown) (unknown) Sarcoidosis of (units (unknown) date) lung unknown) (unknown) (no (unknown) (unknown) See Dose (units (unkno wn) date) Instructions unknown) .ROUTE .MEDSUPPLY Qty: 2 0RF (unknown) (no (unknown) (unknown) Signed By: (units (unk nown) date) unknown) (unknown) (no (unknown) (unknown) Sister (units (unkno wn) date) Hypertension unknown) (unknown) (no (unknown) (unknown) Smoking Status: (units (unknown) date) Never smoker unknown) (unknown) (no (unknown) (unknown) Social History (units (unknown) date) (Reviewed 06/27/21 unknown) @ 11:06 by Jesus Krishna DO) (unknown) (no (unknown) (unknown) Stated complaint: (units (unknown) date) SOB requests to unknown) come (unknown) (no (unknown) (unknown) Substance Use (units ( unknown) date) Type: does not use unknown) (unknown) (no (unknown) (unknown) Surgical History (units (unknown) date) (Updated 06/27/21 unknown) @ 18:35 by Sterling Martin DO) (unknown) (no (unknown) (unknown) TAKE 1 TABLET BY (units (unknown) date) MOUTH ONCE DAILY unknown) (unknown) (no (unknown) (unknown) Time Seen by (units (u nknown) date) Provider: 09/10/22 unknown) 01:16 (unknown) (no (unknown) (unknown) USE 1 AMPULE IN (units (unknown) date) NEBULIZER EVERY 6 unknown) HOURS NEEDED (unknown) (no (unknown) (unknown) alcohol intake (units (unknown) date) frequency: 0-2 unknown) drinks per day (unknown) (no (unknown) (unknown) aspirin 81 mg (units ( unknown) date) Tablet,Chewable unknown) (unknown) (no (unknown) (unknown) aspirin 81 mg (units ( unknown) date) chewable tablet 81 unknown) mg PO DAILY 03/19/18 06/27/21 (unknown) (no (unknown) (unknown) benzonatate 100 (units (unknown) date) mg capsule 100 mg unknown) PO TID PRN cough #30 caps 03/19/18 (unknown) (no (unknown) (unknown) benzonatate (units (un known) date) [Tessalon Perlwally] unknown) 100 mg capsule (unknown) (no (unknown) (unknown) carvedilol 6.25 (units (unknown) date) mg Tablet unknown) (unknown) (no (unknown) (unknown) carvedilol 6.25 (units (unknown) date) mg tablet 6.25 mg unknown) PO BID 03/19/18 06/27/21 (unknown) (no (unknown) (unknown) cholecalciferol (units (unknown) date) (vitamin D3) 10 unknown) 400 unit PO DAILY 03/19/18 06/27/21 (unknown) (no (unknown) (unknown) cholecalciferol (units (unknown) date) (vitamin D3) 400 unknown) unit Tablet (unknown) (no (unknown) (unknown) crutch (units (unkno wn) date) accessories #2 ea unknown) 04/20/18 (unknown) (no (unknown) (unknown) cyanocobalamin (units (unknown) date) (vitamin B-12) 500 unknown) 500 mcg PO DAILY 03/19/18 06/27/21 (unknown) (no (unknown) (unknown) cyanocobalamin (units (unknown) date) (vitamin B-12) 500 unknown) mcg Tablet (unknown) (no (unknown) (unknown) doxycycline (units (un known) date) hyclate 100 mg unknown) capsule 100 mg PO BID #14 caps 06/29/21 (unknown) (no (unknown) (unknown) doxycycline (units (un known) date) hyclate 100 mg unknown) capsule (unknown) (no (unknown) (unknown) household (units (unkn own) date) members: spouse unknown) (unknown) (no (unknown) (unknown) ipratropium 0.5 (units (unknown) date) mg-albuterol 3 mg unknown) 2 ml inhalation Q6HR PRN Shortness 06/27/21 (unknown) (no (unknown) (unknown) ipratropium-albut (units (unknown) date) dyana 0.5 mg-3 unknown) mg(2.5 mg base)/3 mL solution for nebulization (unknown) (no (unknown) (unknown) levothyroxine 75 (units (unknown) date) mcg tablet 75 mcg unknown) PO DAILY 06/27/21 06/27/21 (unknown) (no (unknown) (unknown) levothyroxine 75 (units (unknown) date) mcg tablet unknown) (unknown) (no (unknown) (unknown) mcg (400 unit) (units (unknown) date) tablet unknown) (unknown) (no (unknown) (unknown) mcg tablet (units (unk nown) date) unknown) (unknown) (no (unknown) (unknown) nifedipine 60 mg (units (unknown) date) Tablet Extended unknown) Release (unknown) (no (unknown) (unknown) nifedipine 60 mg (units (unknown) date) tablet,extended 60 unknown) mg PO BID 03/19/18 06/27/21 (unknown) (no (unknown) (unknown) omega (units (unkno wn) date) 8-yet-ggk-fish oil unknown) 1,000 mg (120 mg-180 mg) Capsule (unknown) (no (unknown) (unknown) omega (units (unkno wn) date) 7-xlu-tjg-fish oil unknown) 1,000 mg 1 cap PO QHS 03/19/18 06/27/21 (unknown) (no (unknown) (unknown) prazosin 2 mg (units ( unknown) date) Capsule unknown) (unknown) (no (unknown) (unknown) prazosin 2 mg (units ( unknown) date) capsule 1 mg PO unknown) BID 03/19/18 06/27/21 (unknown) (no (unknown) (unknown) prednisone 20 mg (units (unknown) date) Tablet unknown) (unknown) (no (unknown) (unknown) prednisone 20 mg (units (unknown) date) tablet 40 mg PO unknown) DAILY #4 tabs 06/29/21 (unknown) (no (unknown) (unknown) release (units (unkno wn) date) unknown) (unknown) (no (unknown) (unknown) simvastatin 5 mg (units (unknown) date) Tablet unknown) (unknown) (no (unknown) (unknown) simvastatin 5 mg (units (unknown) date) tablet 5 mg PO QPM unknown) 03/19/18 06/27/21 (unknown) (no (unknown) (unknown) soln (units (unkno wn) date) unknown) Result panel 3 (unknown) (no date) (unknown) (unknown) 0 /ul (unkn own) (unknown) (no date) (unknown) (unknown) 0 /ul (unkn own) (unknown) (no date) (unknown) (unknown) 0.2 % (unkn own) (unknown) (no date) (unknown) (unknown) 0.4 % (unkn own) (unknown) (no date) (unknown) (unknown) 11.7 g/dl (unkn own) (unknown) (no date) (unknown) (unknown) 1100 /ul (unkn own) (unknown) (no date) (unknown) (unknown) 130 x10 3/ul (unkn own) (unknown) (no date) (unknown) (unknown) 14.1 % (unkn own) (unknown) (no date) (unknown) (unknown) 14.5 % (unkn own) (unknown) (no date) (unknown) (unknown) 27.2 pg (unkn own) (unknown) (no date) (unknown) (unknown) 30.7 % (unkn own) (unknown) (no date) (unknown) (unknown) 38.2 % (unkn own) (unknown) (no date) (unknown) (unknown) 4.31 x10 6/ul (unkn own) (unknown) (no date) (unknown) (unknown) 500 /ul (unkn own) (unknown) (no date) (unknown) (unknown) 6.0 % (unkn own) (unknown) (no date) (unknown) (unknown) 6000 /ul (unkn own) (unknown) (no date) (unknown) (unknown) 7.5 x10 3/ul (unkn own) (unknown) (no date) (unknown) (unknown) 79.3 % (unkn own) (unknown) (no date) (unknown) (unknown) 88.8 fl (unkn own) Result panel 4 (unknown) (no (unknown) (unknown) (no value) (units (unk nown) date) unknown) (unknown) (no (unknown) (unknown) > 60 ml/min (unkno wn) date) (unknown) (no (unknown) (unknown) > 60 ml/min (unkno wn) date) (unknown) (no (unknown) (unknown) (120 mg-180 mg) (units (unknown) date) capsule unknown) (unknown) (no (unknown) (unknown) (2.5 mg base)/3 (units (unknown) date) mL nebulization Of unknown) Breath (unknown) (no (unknown) (unknown) (DME) crutch (units (u nknown) date) accessories misc unknown) (unknown) (no (unknown) (unknown) (Tessalon Perles) (units (unknown) date) unknown) (unknown) (no (unknown) (unknown) 0.4 mg/dl (unkno wn) date) (unknown) (no (unknown) (unknown) 0.88 mg/dl (unkno wn) date) (unknown) (no (unknown) (unknown) 0.9 (units (unkno wn) date) unknown) (unknown) (no (unknown) (unknown) 01:20 (units (unkno wn) date) unknown) (unknown) (no (unknown) (unknown) [id number] (units (unkno wn) date) unknown) (unknown) (no (unknown) (unknown) 06/27/21 (units (unkno wn) date) unknown) (unknown) (no (unknown) (unknown) 1 cap PO QHS (units (u nknown) date) unknown) (unknown) (no (unknown) (unknown) 1 mg PO BID (units (un known) date) unknown) (unknown) (no (unknown) (unknown) 09/10/22 01:20 (units (unknown) date) unknown) (unknown) (no (unknown) (unknown) 09/10/22 01:27 (units (unknown) date) unknown) (unknown) (no (unknown) (unknown) 09/10/22 01:28 (units (unknown) date) unknown) (unknown) (no (unknown) (unknown) 09/10/22 (units (unkno wn) date) Range/Units unknown) (unknown) (no (unknown) (unknown) 100 mg PO BID (units ( unknown) date) Qty: 14 0RF unknown) (unknown) (no (unknown) (unknown) 100 mg PO TID PRN (units (unknown) date) (Reason: cough) unknown) Qty: 30 0RF (unknown) (no (unknown) (unknown) 133 mg/dl (unkno wn) date) (unknown) (no (unknown) (unknown) 133 mg/dl (unkno wn) date) (unknown) (no (unknown) (unknown) 137 mmol/l (unkno wn) date) (unknown) (no (unknown) (unknown) 2 ml INHALATION (units (unknown) date) Q6HR PRN (Reason: unknown) Shortness Of Breath) (unknown) (no (unknown) (unknown) 23 iu/l (unkno wn) date) (unknown) (no (unknown) (unknown) 24 mg/dl (unkno wn) date) (unknown) (no (unknown) (unknown) 27.3 (units (unkno wn) date) unknown) (unknown) (no (unknown) (unknown) 3.4 g/dl (unkno wn) date) (unknown) (no (unknown) (unknown) 3.8 g/dl (unkno wn) date) (unknown) (no (unknown) (unknown) 4.4 mmol/l (unkno wn) date) (unknown) (no (unknown) (unknown) 40 mg PO DAILY (units (unknown) date) Qty: 4 0RF unknown) (unknown) (no (unknown) (unknown) 400 unit PO DAILY (units (unknown) date) unknown) (unknown) (no (unknown) (unknown) 5 mg PO QPM (units (un known) date) unknown) (unknown) (no (unknown) (unknown) 500 mcg PO DAILY (units (unknown) date) unknown) (unknown) (no (unknown) (unknown) 55 u/l (unkno wn) date) (unknown) (no (unknown) (unknown) 6 iu/l (unkno wn) date) (unknown) (no (unknown) (unknown) 6.25 mg PO BID (units (unknown) date) unknown) (unknown) (no (unknown) (unknown) 60 mg PO BID (units (u nknown) date) unknown) (unknown) (no (unknown) (unknown) 7.2 g/dl (unkno wn) date) (unknown) (no (unknown) (unknown) 75 mcg PO DAILY (units (unknown) date) unknown) (unknown) (no (unknown) (unknown) 8.4 mg/dl (unkno wn) date) (unknown) (no (unknown) (unknown) 81 mg PO DAILY (units (unknown) date) unknown) (unknown) (no (unknown) (unknown) 83 mmol/l (unkno wn) date) (unknown) (no (unknown) (unknown) Age/Sex: 82 / M (units (unknown) date) unknown) (unknown) (no (unknown) (unknown) Allergies (units (unkn own) date) unknown) (unknown) (no (unknown) (unknown) Allergy/AdvReac (units (unknown) date) Type Severity unknown) Reaction Status Date / Time (unknown) (no (unknown) (unknown) As directed (units (un known) date) unknown) (unknown) (no (unknown) (unknown) Attestation: I (units (unknown) date) personally unknown) reviewed and interpreted this ECG as follows: (unknown) (no (unknown) (unknown) Auscultation: (units ( unknown) date) clear to unknown) auscultation bilaterally (unknown) (no (unknown) (unknown) Baso # (Auto) 0 (units (unknown) date) (0-100) /uL unknown) (unknown) (no (unknown) (unknown) Baso % (Auto) 0.4 (units (unknown) date) (0-2) % unknown) (unknown) (no (unknown) (unknown) COVID19 -Nasal (units (unknown) date) RAPID/Pre-Proc unknown) Stat (unknown) (no (unknown) (unknown) Cardio (units (unkno wn) date) unknown) (unknown) (no (unknown) (unknown) Vicente Mckeon (units ( unknown) date) MD Angel unknown) [Primary Care Provider] (unknown) (no (unknown) (unknown) Chief complaint: (units (unknown) date) Shortness of unknown) Breath/Dyspnea (unknown) (no (unknown) (unknown) Chronic (units (unkno wn) date) respiratory unknown) failure with hypoxia (unknown) (no (unknown) (unknown) Complete Blood (units (unknown) date) Count AUTO DIFF unknown) Stat (unknown) (no (unknown) (unknown) Comprehensive (units ( unknown) date) Metabolic Panel unknown) Stat (unknown) (no (unknown) (unknown) Const (units (unkno wn) date) unknown) (unknown) (no (unknown) (unknown) Course (units (unkno wn) date) unknown) (unknown) (no (unknown) (unknown) : 1940 (units (unknown) date) Acct:[id number] unknown) (unknown) (no (unknown) (unknown) Date of Service: (units (unknown) date) 09/10/22 unknown) (unknown) (no (unknown) (unknown) Departure (units (unkn own) date) unknown) (unknown) (no (unknown) (unknown) Discharge Plan (units (unknown) date) unknown) (unknown) (no (unknown) (unknown) Dose Instruction: (units (unknown) date) unknown) (unknown) (no (unknown) (unknown) Dyslipidemia (units (u nknown) date) unknown) (unknown) (no (unknown) (unknown) ECG Data (units (unkno wn) date) unknown) (unknown) (no (unknown) (unknown) ED Orders (units (unkn own) date) unknown) (unknown) (no (unknown) (unknown) EKG-12 Lead Stat (units (unknown) date) unknown) (unknown) (no (unknown) (unknown) ER Physician: (units ( unknown) date) Jesus Krishna unknown) D.O. (unknown) (no (unknown) (unknown) Effort + (units (unkno wn) date) Inspection: not unknown) labored and not tachypneic (unknown) (no (unknown) (unknown) Emergency Report (units (unknown) date) unknown) (unknown) (no (unknown) (unknown) Eos # (Auto) 0 (units (unknown) date) (0-450) /uL unknown) (unknown) (no (unknown) (unknown) Eos % (Auto) 0.2 (units (unknown) date) L (2-4) % unknown) (unknown) (no (unknown) (unknown) Exam (units (unkno wn) date) unknown) (unknown) (no (unknown) (unknown) Extrem (units (unkno wn) date) unknown) (unknown) (no (unknown) (unknown) Family History (units (unknown) date) (Reviewed 06/27/21 unknown) @ 18:35 by Sterling Martin DO) (unknown) (no (unknown) (unknown) General (units (unkno wn) date) unknown) (unknown) (no (unknown) (unknown) General: (units (unkno wn) date) cooperative and No unknown) ill appearing (unknown) (no (unknown) (unknown) General: no (units (un known) date) rashes or lesions unknown) noted (unknown) (no (unknown) (unknown) General: normal (units (unknown) date) to inspection unknown) (unknown) (no (unknown) (unknown) General: patient (units (unknown) date) alert, patient unknown) awake and moves all extremities (unknown) (no (unknown) (unknown) HENMT (units (unkno wn) date) unknown) (unknown) (no (unknown) (unknown) HPI - General (units ( unknown) date) Adult unknown) (unknown) (no (unknown) (unknown) HPI narrative: (units (unknown) date) unknown) (unknown) (no (unknown) (unknown) Hct 38.2 L (units (unk nown) date) (41-53) % unknown) (unknown) (no (unknown) (unknown) Head: normal to (units (unknown) date) inspection and unknown) normocephalic (unknown) (no (unknown) (unknown) Hgb 11.7 L (units (unk nown) date) (13.5-17.5) g/dL unknown) (unknown) (no (unknown) (unknown) History of (units (unk nown) date) Present Illness unknown) (unknown) (no (unknown) (unknown) Home Medications (units (unknown) date) unknown) (unknown) (no (unknown) (unknown) Hypertension (units (u nknown) date) unknown) (unknown) (no (unknown) (unknown) Hypothyroidism (units (unknown) date) unknown) (unknown) (no (unknown) (unknown) Interpretation: (units (unknown) date) unknown) (unknown) (no (unknown) (unknown) [facility] (units (unknown) date) [address] [place] [address] Street unknown) [place] [address] (unknown) (no (unknown) (unknown) Lab Data (units (unkno wn) date) unknown) (unknown) (no (unknown) (unknown) Lab Results (units (un known) date) unknown) (unknown) (no (unknown) (unknown) Label Comments: (units (unknown) date) unknown) (unknown) (no (unknown) (unknown) Labs: (units (unkno wn) date) unknown) (unknown) (no (unknown) (unknown) Left axis (units (unkn own) date) deviation unknown) (unknown) (no (unknown) (unknown) Limitations: no (units (unknown) date) limitations unknown) (unknown) (no (unknown) (unknown) Lymph # (Auto) (units (unknown) date) 1100 ([id number]) unknown) /uL (unknown) (no (unknown) (unknown) Lymph % (Auto) (units (unknown) date) 14.1 L (25-40) % unknown) (unknown) (no (unknown) (unknown) MCH 27.2 (26-34) (units (unknown) date) PG unknown) (unknown) (no (unknown) (unknown) MCHC 30.7 (30-36) (units (unknown) date) % unknown) (unknown) (no (unknown) (unknown) MCV 88.8 (80-100) (units (unknown) date) fL unknown) (unknown) (no (unknown) (unknown) Medical Decision (units (unknown) date) Making unknown) (unknown) (no (unknown) (unknown) Medical History (units (unknown) date) (Reviewed 09/10/22 unknown) @ 01:42 by Jesus Krishna DO) (unknown) (no (unknown) (unknown) Medication (units (unk nown) date) Instructions unknown) Recorded Confirmed (unknown) (no (unknown) (unknown) Medication (units (unk nown) date) Instructions unknown) Recorded (unknown) (no (unknown) (unknown) Mode of arrival: (units (unknown) date) EMS unknown) (unknown) (no (unknown) (unknown) [place] # (Auto) 500 (units (unknown) date) (0-900) /uL unknown) (unknown) (no (unknown) (unknown) [place] % (Auto) 6.0 (units (unknown) date) (3-14) % unknown) (unknown) (no (unknown) (unknown) Mother Diabetes (units (unknown) date) mellitus unknown) (unknown) (no (unknown) (unknown) NT-proBNP (units (unkn own) date) (BNP-Adult 18+) unknown) Stat (unknown) (no (unknown) (unknown) Neuro (units (unkno wn) date) unknown) (unknown) (no (unknown) (unknown) Neut # (Auto) (units ( unknown) date) 6000 ([id number]) unknown) /uL (unknown) (no (unknown) (unknown) Neut % (Auto) (units ( unknown) date) 79.3 H (50-75) % unknown) (unknown) (no (unknown) (unknown) No Action (units (unkn own) date) unknown) (unknown) (no (unknown) (unknown) No Known Drug (units ( unknown) date) Allergies Allergy unknown) Verified 09/10/22 01:26 (unknown) (no (unknown) (unknown) No ST T wave (units (u nknown) date) changes unknown) (unknown) (no (unknown) (unknown) No pertinent past (units (unknown) date) surgical history unknown) (unknown) (no (unknown) (unknown) Normal QRS (units (unk nown) date) unknown) (unknown) (no (unknown) (unknown) Normal QTC (units (unk nown) date) unknown) (unknown) (no (unknown) (unknown) Ordered: (units (unkno wn) date) unknown) (unknown) (no (unknown) (unknown) Orders (units (unkno wn) date) unknown) (unknown) (no (unknown) (unknown) Paroxysmal atrial (units (unknown) date) fibrillation unknown) (unknown) (no (unknown) (unknown) Patient History (units (unknown) date) unknown) (unknown) (no (unknown) (unknown) Patient is an (units ( unknown) date) 82-year-old male. 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 (unknown) (no (unknown) (unknown) Patient: (units (unkno wn) date) Ellen Avendano unknown) MR#: [id number] (unknown) (no (unknown) (unknown) Plt Count 130 L (units (unknown) date) (150-400) X103/uL unknown) (unknown) (no (unknown) (unknown) Prescriptions: (units (unknown) date) unknown) (unknown) (no (unknown) (unknown) Previous Rx's (units ( unknown) date) unknown) (unknown) (no (unknown) (unknown) Pulmonary (units (unkn own) date) embolism unknown) (unknown) (no (unknown) (unknown) RBC 4.31 L (units (unk nown) date) (4.5-5.9) X106/uL unknown) (unknown) (no (unknown) (unknown) RDW 14.5 (units (unkno wn) date) (11.6-14.8) % unknown) (unknown) (no (unknown) (unknown) ROS Unobtainable: (units (unknown) date) All systems unknown) reviewed + are unremarkable except as noted in HPI (unknown) (no (unknown) (unknown) RT Consult Eval (units (unknown) date) and Treat Now unknown) (unknown) (no (unknown) (unknown) Rate: regular (units ( unknown) date) rate unknown) (unknown) (no (unknown) (unknown) Referrals: (units (unk nown) date) unknown) (unknown) (no (unknown) (unknown) Related Data (units (u nknown) date) unknown) (unknown) (no (unknown) (unknown) Resp (units (unkno wn) date) unknown) (unknown) (no (unknown) (unknown) Result diagrams: (units (unknown) date) unknown) (unknown) (no (unknown) (unknown) Review of Systems (units (unknown) date) unknown) (unknown) (no (unknown) (unknown) Rhythm: regular (units (unknown) date) rhythm unknown) (unknown) (no (unknown) (unknown) Rx Instructions: (units (unknown) date) unknown) (unknown) (no (unknown) (unknown) Sarcoidosis of (units (unknown) date) lung unknown) (unknown) (no (unknown) (unknown) See Dose (units (unkno wn) date) Instructions unknown) .ROUTE .MEDSUPPLY Qty: 2 0RF (unknown) (no (unknown) (unknown) Signed By: (units (unk nown) date) unknown) (unknown) (no (unknown) (unknown) Sinus rhythm (units (u nknown) date) unknown) (unknown) (no (unknown) (unknown) Sister (units (unkno wn) date) Hypertension unknown) (unknown) (no (unknown) (unknown) Skin (units (unkno wn) date) unknown) (unknown) (no (unknown) (unknown) Smoking Status: (units (unknown) date) Never smoker unknown) (unknown) (no (unknown) (unknown) Social History (units (unknown) date) (Reviewed 09/10/22 unknown) @ 01:42 by Jesus Krishna DO) (unknown) (no (unknown) (unknown) Source: patient (units (unknown) date) unknown) (unknown) (no (unknown) (unknown) Stated complaint: (units (unknown) date) SOB requests to unknown) come (unknown) (no (unknown) (unknown) Substance Use (units ( unknown) date) Type: does not use unknown) (unknown) (no (unknown) (unknown) Surgical History (units (unknown) date) (Updated 06/27/21 unknown) @ 18:35 by Sterling Martin DO) (unknown) (no (unknown) (unknown) TAKE 1 TABLET BY (units (unknown) date) MOUTH ONCE DAILY unknown) (unknown) (no (unknown) (unknown) Time Seen by (units (u nknown) date) Provider: 09/10/22 unknown) 01:16 (unknown) (no (unknown) (unknown) USE 1 AMPULE IN (units (unknown) date) NEBULIZER EVERY 6 unknown) HOURS NEEDED (unknown) (no (unknown) (unknown) Ventricular rate (units (unknown) date) is 64 unknown) (unknown) (no (unknown) (unknown) WBC 7.5 (units (unkno wn) date) (4.5-11.0) X103/uL unknown) (unknown) (no (unknown) (unknown) XR chest 1V Stat (units (unknown) date) unknown) (unknown) (no (unknown) (unknown) [Embedded Image (units (unknown) date) Not Available] unknown) (unknown) (no (unknown) (unknown) alcohol intake (units (unknown) date) frequency: 0-2 unknown) drinks per day (unknown) (no (unknown) (unknown) and below (units (unkn own) date) unknown) (unknown) (no (unknown) (unknown) aspirin 81 mg (units ( unknown) date) Tablet,Chewable unknown) (unknown) (no (unknown) (unknown) aspirin 81 mg (units ( unknown) date) chewable tablet 81 unknown) mg PO DAILY 03/19/18 06/27/21 (unknown) (no (unknown) (unknown) benzonatate 100 (units (unknown) date) mg capsule 100 mg unknown) PO TID PRN cough #30 caps 03/19/18 (unknown) (no (unknown) (unknown) benzonatate (units (un known) date) [Tessalon Perles] unknown) 100 mg capsule (unknown) (no (unknown) (unknown) better. Is at his (units (unknown) date) baseline unknown) respiratory status. (unknown) (no (unknown) (unknown) carvedilol 6.25 (units (unknown) date) mg Tablet unknown) (unknown) (no (unknown) (unknown) carvedilol 6.25 (units (unknown) date) mg tablet 6.25 mg unknown) PO BID 03/19/18 06/27/21 (unknown) (no (unknown) (unknown) cholecalciferol (units (unknown) date) (vitamin D3) 10 unknown) 400 unit PO DAILY 03/19/18 06/27/21 (unknown) (no (unknown) (unknown) cholecalciferol (units (unknown) date) (vitamin D3) 400 unknown) unit Tablet (unknown) (no (unknown) (unknown) crutch (units (unkno wn) date) accessories #2 ea unknown) 04/20/18 (unknown) (no (unknown) (unknown) cyanocobalamin (units (unknown) date) (vitamin B-12) 500 unknown) 500 mcg PO DAILY 03/19/18 06/27/21 (unknown) (no (unknown) (unknown) cyanocobalamin (units (unknown) date) (vitamin B-12) 500 unknown) mcg Tablet (unknown) (no (unknown) (unknown) doxycycline (units (un known) date) hyclate 100 mg unknown) capsule 100 mg PO BID #14 caps 06/29/21 (unknown) (no (unknown) (unknown) doxycycline (units (un known) date) hyclate 100 mg unknown) capsule (unknown) (no (unknown) (unknown) household (units (unkn own) date) members: spouse unknown) (unknown) (no (unknown) (unknown) ipratropium 0.5 (units (unknown) date) mg-albuterol 3 mg unknown) 2 ml inhalation Q6HR PRN Shortness 06/27/21 (unknown) (no (unknown) (unknown) ipratropium-albut (units (unknown) date) dyana 0.5 mg-3 unknown) mg(2.5 mg base)/3 mL solution for nebulization (unknown) (no (unknown) (unknown) levothyroxine 75 (units (unknown) date) mcg tablet 75 mcg unknown) PO DAILY 06/27/21 06/27/21 (unknown) (no (unknown) (unknown) levothyroxine 75 (units (unknown) date) mcg tablet unknown) (unknown) (no (unknown) (unknown) mcg (400 unit) (units (unknown) date) tablet unknown) (unknown) (no (unknown) (unknown) mcg tablet (units (unk nown) date) unknown) (unknown) (no (unknown) (unknown) nifedipine 60 mg (units (unknown) date) Tablet Extended unknown) Release (unknown) (no (unknown) (unknown) nifedipine 60 mg (units (unknown) date) tablet,extended 60 unknown) mg PO BID 03/19/18 06/27/21 (unknown) (no (unknown) (unknown) omega (units (unkno wn) date) 3-ckq-abe-fish oil unknown) 1,000 mg (120 mg-180 mg) Capsule (unknown) (no (unknown) (unknown) omega (units (unkno wn) date) 5-hel-qcx-fish oil unknown) 1,000 mg 1 cap PO QHS 03/19/18 06/27/21 (unknown) (no (unknown) (unknown) oxygen. Also has (units (unknown) date) home nebulizers. unknown) This evening started to have episodes of (unknown) (no (unknown) (unknown) prazosin 2 mg (units ( unknown) date) Capsule unknown) (unknown) (no (unknown) (unknown) prazosin 2 mg (units ( unknown) date) capsule 1 mg PO unknown) BID 03/19/18 06/27/21 (unknown) (no (unknown) (unknown) prednisone 20 mg (units (unknown) date) Tablet unknown) (unknown) (no (unknown) (unknown) prednisone 20 mg (units (unknown) date) tablet 40 mg PO unknown) DAILY #4 tabs 06/29/21 (unknown) (no (unknown) (unknown) release (units (unkno wn) date) unknown) (unknown) (no (unknown) (unknown) shortness of (units (u nknown) date) breath. He did not unknown) use any of his nebulizers. Things were getting (unknown) (no (unknown) (unknown) simvastatin 5 mg (units (unknown) date) Tablet unknown) (unknown) (no (unknown) (unknown) simvastatin 5 mg (units (unknown) date) tablet 5 mg PO QPM unknown) 03/19/18 06/27/21 (unknown) (no (unknown) (unknown) soln (units (unkno wn) date) unknown) (unknown) (no (unknown) (unknown) which improved (units (unknown) date) his symptoms. At unknown) the time my evaluation he states he feels much (unknown) (no (unknown) (unknown) worse so he (units (un known) date) contacted EMS. He unknown) did receive nebulizers by EMS prior to arrival Result panel 5 (unknown) (no date) (unknown) (unknown) > 60 ml/min (unkn own) (unknown) (no date) (unknown) (unknown) > 60 ml/min (unkn own) (unknown) (no date) (unknown) (unknown) 0.4 mg/dl (unkn own) (unknown) (no date) (unknown) (unknown) 0.88 mg/dl (unkn own) (unknown) (no date) (unknown) (unknown) 0.9 (units unknown) (unknown) (unknown) (no date) (unknown) (unknown) 133 mg/dl (unkn own) (unknown) (no date) (unknown) (unknown) 133 mg/dl (unkn own) (unknown) (no date) (unknown) (unknown) 137 mmol/l (unkn own) (unknown) (no date) (unknown) (unknown) 23 iu/l (unkn own) (unknown) (no date) (unknown) (unknown) 24 mg/dl (unkn own) (unknown) (no date) (unknown) (unknown) 247 pg/ml (unkn own) (unknown) (no date) (unknown) (unknown) 247 pg/ml (unkn own) (unknown) (no date) (unknown) (unknown) 27.3 (units unknown) (unknown) (unknown) (no date) (unknown) (unknown) 3.4 g/dl (unkn own) (unknown) (no date) (unknown) (unknown) 3.8 g/dl (unkn own) (unknown) (no date) (unknown) (unknown) 4.4 mmol/l (unkn own) (unknown) (no date) (unknown) (unknown) 49 mmol/l (unkn own) (unknown) (no date) (unknown) (unknown) 49 mmol/l (unkn own) (unknown) (no date) (unknown) (unknown) 55 u/l (unkn own) (unknown) (no date) (unknown) (unknown) 6 iu/l (unkn own) (unknown) (no date) (unknown) (unknown) 7.2 g/dl (unkn own) (unknown) (no date) (unknown) (unknown) 8.4 mg/dl (unkn own) (unknown) (no date) (unknown) (unknown) 83 mmol/l (unkn own) Result panel 6 (unknown) (no (unknown) (unknown) (no value) (units (unk nown) date) unknown) (unknown) (no (unknown) (unknown) (120 mg-180 mg) (units (unknown) date) capsule unknown) (unknown) (no (unknown) (unknown) (2.5 mg base)/3 (units (unknown) date) mL nebulization Of unknown) Breath (unknown) (no (unknown) (unknown) (DME) crutch (units (u nknown) date) accessories misc unknown) (unknown) (no (unknown) (unknown) (Tessalon Perles) (units (unknown) date) unknown) (unknown) (no (unknown) (unknown) 01:20 01:20 (units (un known) date) unknown) (unknown) (no (unknown) (unknown) 01:26 (units (unkno wn) date) unknown) (unknown) (no (unknown) (unknown) [id number] (units (unkno wn) date) unknown) (unknown) (no (unknown) (unknown) 06/27/21 (units (unkno wn) date) unknown) (unknown) (no (unknown) (unknown) 1 cap PO QHS (units (u nknown) date) unknown) (unknown) (no (unknown) (unknown) 1 mg PO BID (units (un known) date) unknown) (unknown) (no (unknown) (unknown) 12/08/21 the (units (un known) date) degree of unknown) interstitial lung disease does not appear to have (unknown) (no (unknown) (unknown) 09/10/22 01:20 (units (unknown) date) unknown) (unknown) (no (unknown) (unknown) 09/10/22 01:27 (units (unknown) date) unknown) (unknown) (no (unknown) (unknown) 09/10/22 01:28 (units (unknown) date) unknown) (unknown) (no (unknown) (unknown) 09/10/22 09/10/22 (units (unknown) date) Range/Units unknown) (unknown) (no (unknown) (unknown) 09/10/22 (units (unkno wn) date) unknown) (unknown) (no (unknown) (unknown) 100 mg PO BID (units ( unknown) date) Qty: 14 0RF unknown) (unknown) (no (unknown) (unknown) 100 mg PO TID PRN (units (unknown) date) (Reason: cough) unknown) Qty: 30 0RF (unknown) (no (unknown) (unknown) [address] (units (unknown) date) unknown) (unknown) (no (unknown) (unknown) 2 ml INHALATION (units (unknown) date) Q6HR PRN (Reason: unknown) Shortness Of Breath) (unknown) (no (unknown) (unknown) 40 mg PO DAILY (units (unknown) date) Qty: 4 0RF unknown) (unknown) (no (unknown) (unknown) 400 unit PO DAILY (units (unknown) date) unknown) (unknown) (no (unknown) (unknown) 5 mg PO QPM (units (un known) date) unknown) (unknown) (no (unknown) (unknown) 500 mcg PO DAILY (units (unknown) date) unknown) (unknown) (no (unknown) (unknown) 6.25 mg PO BID (units (unknown) date) unknown) (unknown) (no (unknown) (unknown) 60 mg PO BID (units (u nknown) date) unknown) (unknown) (no (unknown) (unknown) 75 mcg PO DAILY (units (unknown) date) unknown) (unknown) (no (unknown) (unknown) 81 mg PO DAILY (units (unknown) date) unknown) (unknown) (no (unknown) (unknown) ? (units (unkno wn) date) unknown) (unknown) (no (unknown) (unknown) ALT 6 (<50) IU/L (units (unknown) date) unknown) (unknown) (no (unknown) (unknown) AST 23 (17-59) (units (unknown) date) IU/L unknown) (unknown) (no (unknown) (unknown) Accession Number: (units (unknown) date) [id number] ?? unknown) (unknown) (no (unknown) (unknown) Acct:[id number] (units (unknown) date) unknown) (unknown) (no (unknown) (unknown) Age/Sex: 82 / M (units (unknown) date) unknown) (unknown) (no (unknown) (unknown) Albumin 3.4 L (units ( unknown) date) (3.5-5.0) g/dL unknown) (unknown) (no (unknown) (unknown) Albumin/Globulin (units (unknown) date) Ratio 0.9 L unknown) (1.0-2.8) (unknown) (no (unknown) (unknown) Alkaline (units (unkno wn) date) Phosphatase 55 unknown) (38-126) U/L (unknown) (no (unknown) (unknown) Allergies (units (unkn own) date) unknown) (unknown) (no (unknown) (unknown) Allergy/AdvReac (units (unknown) date) Type Severity unknown) Reaction Status Date / Time (unknown) (no (unknown) (unknown) AUDREY [place] (units ( unknown) date) [id number] unknown) (unknown) (no (unknown) (unknown) Approved by: (units (u nknown) date) brandie Logan M.D. on 09/10/2022 at 1:58?? (unknown) (no (unknown) (unknown) As directed (units (un known) date) unknown) (unknown) (no (unknown) (unknown) Attestation: I (units (unknown) date) personally unknown) reviewed and interpreted this ECG as follows: (unknown) (no (unknown) (unknown) Auscultation: (units ( unknown) date) clear to unknown) auscultation bilaterally (unknown) (no (unknown) (unknown) BUN 24 H (9-20) (units (unknown) date) mg/dL unknown) (unknown) (no (unknown) (unknown) BUN/Creatinine (units (unknown) date) Ratio 27.3 H unknown) (6-22) (unknown) (no (unknown) (unknown) Baso # (Auto) 0 (units (unknown) date) (0-100) /uL unknown) (unknown) (no (unknown) (unknown) Baso % (Auto) 0.4 (units (unknown) date) (0-2) % unknown) (unknown) (no (unknown) (unknown) Blood Pressure (units (unknown) date) 174/75 H 09/10/22 unknown) 01:26 (unknown) (no (unknown) (unknown) Blood Pressure (units (unknown) date) 174/75 H unknown) (unknown) (no (unknown) (unknown) Bones and chest (units (unknown) date) wall:? No unknown) suspicious bony lesions.? Overlying soft tissues (unknown) (no (unknown) (unknown) COMPARISON:? (units (u nknown) date) Outside Film, CR, unknown) XR CHEST 1 VIEW, 12/08/2021, 14:22. (unknown) (no (unknown) (unknown) COVID19 -Nasal (units (unknown) date) RAPID/Pre-Proc unknown) Stat (unknown) (no (unknown) (unknown) Calcium 8.4 (units (un known) date) (8.4-10.2) mg/dL unknown) (unknown) (no (unknown) (unknown) Carbon Dioxide 49 (units (unknown) date) H* (22-32) mmol/L unknown) (unknown) (no (unknown) (unknown) Cardio (units (unkno wn) date) unknown) (unknown) (no (unknown) (unknown) Vicente Mckeon (units ( unknown) date) MD Angel unknown) [Primary Care Provider] (unknown) (no (unknown) (unknown) Chest x-ray: (units (u nknown) date) unknown) (unknown) (no (unknown) (unknown) Chief complaint: (units (unknown) date) Shortness of unknown) Breath/Dyspnea (unknown) (no (unknown) (unknown) Chloride 83 L (units ( unknown) date) (98-107) mmol/L unknown) (unknown) (no (unknown) (unknown) Chronic (units (unkno wn) date) respiratory unknown) failure with hypoxia (unknown) (no (unknown) (unknown) Complete Blood (units (unknown) date) Count AUTO DIFF unknown) Stat (unknown) (no (unknown) (unknown) Comprehensive (units ( unknown) date) Metabolic Panel unknown) Stat (unknown) (no (unknown) (unknown) Const (units (unkno wn) date) unknown) (unknown) (no (unknown) (unknown) Course (units (unkno wn) date) unknown) (unknown) (no (unknown) (unknown) Creatinine 0.88 (units (unknown) date) (0.66-1.25) mg/dL unknown) (unknown) (no (unknown) (unknown) : 1940 (units (unknown) date) Acct:[id number] unknown) (unknown) (no (unknown) (unknown) : 1940 (units (unknown) date) unknown) (unknown) (no (unknown) (unknown) Date of Service: (units (unknown) date) 09/10/22 unknown) (unknown) (no (unknown) (unknown) Departure (units (unkn own) date) unknown) (unknown) (no (unknown) (unknown) Dictated by: (units (u nknown) date) brandie Logan M.D. on 09/10/2022 at 1:57 ? ? (unknown) (no (unknown) (unknown) Discharge Plan (units (unknown) date) unknown) (unknown) (no (unknown) (unknown) Dose Instruction: (units (unknown) date) unknown) (unknown) (no (unknown) (unknown) Dyslipidemia (units (u nknown) date) unknown) (unknown) (no (unknown) (unknown) ECG Data (units (unkno wn) date) unknown) (unknown) (no (unknown) (unknown) ED Orders (units (unkn own) date) unknown) (unknown) (no (unknown) (unknown) EKG-12 Lead Stat (units (unknown) date) unknown) (unknown) (no (unknown) (unknown) ER Physician: (units ( unknown) date) Jesus Krishna unknown) D.O. (unknown) (no (unknown) (unknown) Effort + (units (unkno wn) date) Inspection: not unknown) labored and not tachypneic (unknown) (no (unknown) (unknown) Emergency Report (units (unknown) date) unknown) (unknown) (no (unknown) (unknown) Eos # (Auto) 0 (units (unknown) date) (0-450) /uL unknown) (unknown) (no (unknown) (unknown) Eos % (Auto) 0.2 (units (unknown) date) L (2-4) % unknown) (unknown) (no (unknown) (unknown) Estimated GFR > (units (unknown) date) 60 (>60) mL/min unknown) (unknown) (no (unknown) (unknown) Exam (units (unkno wn) date) unknown) (unknown) (no (unknown) (unknown) Extrem (units (unkno wn) date) unknown) (unknown) (no (unknown) (unknown) FINDINGS:? (units (unk nown) date) unknown) (unknown) (no (unknown) (unknown) Family History (units (unknown) date) (Reviewed 06/27/21 unknown) @ 18:35 by Sterling Martin DO) (unknown) (no (unknown) (unknown) General (units (unkno wn) date) unknown) (unknown) (no (unknown) (unknown) General: (units (unkno wn) date) cooperative and No unknown) ill appearing (unknown) (no (unknown) (unknown) General: no (units (un known) date) rashes or lesions unknown) noted (unknown) (no (unknown) (unknown) General: normal (units (unknown) date) to inspection unknown) (unknown) (no (unknown) (unknown) General: patient (units (unknown) date) alert, patient unknown) awake and moves all extremities (unknown) (no (unknown) (unknown) Globulin 3.8 (units (u nknown) date) (1.7-4.1) g/dL unknown) (unknown) (no (unknown) (unknown) Glucose 133 H (units ( unknown) date) (80-110) mg/dL unknown) (unknown) (no (unknown) (unknown) HENMT (units (unkno wn) date) unknown) (unknown) (no (unknown) (unknown) HPI - General (units ( unknown) date) Adult unknown) (unknown) (no (unknown) (unknown) HPI narrative: (units (unknown) date) unknown) (unknown) (no (unknown) (unknown) Hct 38.2 L (units (unk nown) date) (41-53) % unknown) (unknown) (no (unknown) (unknown) Head: normal to (units (unknown) date) inspection and unknown) normocephalic (unknown) (no (unknown) (unknown) Hgb 11.7 L (units (unk nown) date) (13.5-17.5) g/dL unknown) (unknown) (no (unknown) (unknown) History of (units (unk nown) date) Present Illness unknown) (unknown) (no (unknown) (unknown) Home Medications (units (unknown) date) unknown) (unknown) (no (unknown) (unknown) Hypertension (units (u nknown) date) unknown) (unknown) (no (unknown) (unknown) Hypothyroidism (units (unknown) date) unknown) (unknown) (no (unknown) (unknown) IMPRESSION:? (units (u nknown) date) Chronic unknown) interstitial lung disease, moderately severe, accentuated (unknown) (no (unknown) (unknown) INDICATIONS:? SOB (units (unknown) date) unknown) (unknown) (no (unknown) (unknown) Imaging Data (units (u nknown) date) unknown) (unknown) (no (unknown) (unknown) Initial Vital (units ( unknown) date) Signs unknown) (unknown) (no (unknown) (unknown) Initial Vital (units ( unknown) date) Signs: unknown) (unknown) (no (unknown) (unknown) Interpretation: (units (unknown) date) unknown) (unknown) (no (unknown) (unknown) [facility] (units (unknown) date) [address] unknown) [place] [address] (unknown) (no (unknown) (unknown) [facility] (units (unknown) date) unknown) (unknown) (no (unknown) (unknown) Lab Data (units (unkno wn) date) unknown) (unknown) (no (unknown) (unknown) Lab Results (units (un known) date) unknown) (unknown) (no (unknown) (unknown) Label Comments: (units (unknown) date) unknown) (unknown) (no (unknown) (unknown) Labs: (units (unkno wn) date) unknown) (unknown) (no (unknown) (unknown) Left axis (units (unkn own) date) deviation unknown) (unknown) (no (unknown) (unknown) Limitations: no (units (unknown) date) limitations unknown) (unknown) (no (unknown) (unknown) Loc: ED (units (unkno wn) date) unknown) (unknown) (no (unknown) (unknown) Lungs and (units (unkn own) date) pleura:? Lungs are unknown) abnormal with a chronic interstitial lung disease (unknown) (no (unknown) (unknown) Lymph # (Auto) (units (unknown) date) 1100 ([id number]) unknown) /uL (unknown) (no (unknown) (unknown) Lymph % (Auto) (units (unknown) date) 14.1 L (25-40) % unknown) (unknown) (no (unknown) (unknown) MCH 27.2 (26-34) (units (unknown) date) PG unknown) (unknown) (no (unknown) (unknown) MCHC 30.7 (30-36) (units (unknown) date) % unknown) (unknown) (no (unknown) (unknown) MCV 88.8 (80-100) (units (unknown) date) fL unknown) (unknown) (no (unknown) (unknown) MR#: [id number] (units (unknown) date) unknown) (unknown) (no (unknown) (unknown) Mediastinum:? (units ( unknown) date) Mediastinal unknown) contours appear normal.? Heart size is normal.? (unknown) (no (unknown) (unknown) Medical Decision (units (unknown) date) Making unknown) (unknown) (no (unknown) (unknown) Medical History (units (unknown) date) (Reviewed 09/10/22 unknown) @ 01:42 by Jesus Krishna DO) (unknown) (no (unknown) (unknown) Medication (units (unk nown) date) Instructions unknown) Recorded Confirmed (unknown) (no (unknown) (unknown) Medication (units (unk nown) date) Instructions unknown) Recorded (unknown) (no (unknown) (unknown) Mode of arrival: (units (unknown) date) EMS unknown) (unknown) (no (unknown) (unknown) [place] # (Auto) 500 (units (unknown) date) (0-900) /uL unknown) (unknown) (no (unknown) (unknown) [place] % (Auto) 6.0 (units (unknown) date) (3-14) % unknown) (unknown) (no (unknown) (unknown) Mother Diabetes (units (unknown) date) mellitus unknown) (unknown) (no (unknown) (unknown) NT-Pro-B (units (unkno wn) date) Natriuret Pep 247 unknown) (<450) pg/mL (unknown) (no (unknown) (unknown) NT-proBNP (units (unkn own) date) (BNP-Adult 18+) unknown) Stat (unknown) (no (unknown) (unknown) Neuro (units (unkno wn) date) unknown) (unknown) (no (unknown) (unknown) Neut # (Auto) (units ( unknown) date) 6000 ([id number]) unknown) /uL (unknown) (no (unknown) (unknown) Neut % (Auto) (units ( unknown) date) 79.3 H (50-75) % unknown) (unknown) (no (unknown) (unknown) No Action (units (unkn own) date) unknown) (unknown) (no (unknown) (unknown) No Known Drug (units ( unknown) date) Allergies Allergy unknown) Verified 09/10/22 01:26 (unknown) (no (unknown) (unknown) No ST T wave (units (u nknown) date) changes unknown) (unknown) (no (unknown) (unknown) No pertinent past (units (unknown) date) surgical history unknown) (unknown) (no (unknown) (unknown) Normal QRS (units (unk nown) date) unknown) (unknown) (no (unknown) (unknown) Normal QTC (units (unk nown) date) unknown) (unknown) (no (unknown) (unknown) Ordered: (units (unkno wn) date) unknown) (unknown) (no (unknown) (unknown) Ordering (units (unkno wn) date) Provider: unknown) Jesus Krishna D.O. (unknown) (no (unknown) (unknown) Orders (units (unkno wn) date) unknown) (unknown) (no (unknown) (unknown) Oxygen Delivery (units (unknown) date) Method 09/10/22 unknown) 01:26 (unknown) (no (unknown) (unknown) Oxygen Delivery (units (unknown) date) Method Room Air unknown) (unknown) (no (unknown) (unknown) PROCEDURE:? XR (units (unknown) date) CHEST 1V unknown) (unknown) (no (unknown) (unknown) Paroxysmal atrial (units (unknown) date) fibrillation unknown) (unknown) (no (unknown) (unknown) Patient History (units (unknown) date) unknown) (unknown) (no (unknown) (unknown) Patient is an (units ( unknown) date) 82-year-old male. 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 (unknown) (no (unknown) (unknown) Patient: (units (unkno wn) date) Ellen Avendano unknown) MR#: [id number] (unknown) (no (unknown) (unknown) Patient: (units (unkno wn) date) Ellen Avendano unknown) (unknown) (no (unknown) (unknown) Plt Count 130 L (units (unknown) date) (150-400) X103/uL unknown) (unknown) (no (unknown) (unknown) Potassium 4.4 (units ( unknown) date) (3.4-5.1) mmol/L unknown) (unknown) (no (unknown) (unknown) Prescriptions: (units (unknown) date) unknown) (unknown) (no (unknown) (unknown) Previous Rx's (units ( unknown) date) unknown) (unknown) (no (unknown) (unknown) Procedure: XR (units ( unknown) date) chest 1V unknown) (unknown) (no (unknown) (unknown) Pulmonary (units (unkn own) date) embolism unknown) (unknown) (no (unknown) (unknown) Pulse Oximetry 98 (units (unknown) date) 09/10/22 01:26 unknown) (unknown) (no (unknown) (unknown) Pulse Oximetry 98 (units (unknown) date) unknown) (unknown) (no (unknown) (unknown) Pulse Rate 67 (units ( unknown) date) 09/10/22 01:26 unknown) (unknown) (no (unknown) (unknown) Pulse Rate 67 (units ( unknown) date) unknown) (unknown) (no (unknown) (unknown) RBC 4.31 L (units (unk nown) date) (4.5-5.9) X106/uL unknown) (unknown) (no (unknown) (unknown) RDW 14.5 (units (unkno wn) date) (11.6-14.8) % unknown) (unknown) (no (unknown) (unknown) ROS Unobtainable: (units (unknown) date) All systems unknown) reviewed + are unremarkable except as noted in HPI (unknown) (no (unknown) (unknown) RT Consult Eval (units (unknown) date) and Treat Now unknown) (unknown) (no (unknown) (unknown) Radiologist's (units ( unknown) date) Impression: unknown) (unknown) (no (unknown) (unknown) Rate: regular (units ( unknown) date) rate unknown) (unknown) (no (unknown) (unknown) Referrals: (units (unk nown) date) unknown) (unknown) (no (unknown) (unknown) Related Data (units (u nknown) date) unknown) (unknown) (no (unknown) (unknown) Resp (units (unkno wn) date) unknown) (unknown) (no (unknown) (unknown) Respiratory Rate (units (unknown) date) 14 09/10/22 01:26 unknown) (unknown) (no (unknown) (unknown) Respiratory Rate (units (unknown) date) 14 unknown) (unknown) (no (unknown) (unknown) Result diagrams: (units (unknown) date) unknown) (unknown) (no (unknown) (unknown) Review of Systems (units (unknown) date) unknown) (unknown) (no (unknown) (unknown) Rhythm: regular (units (unknown) date) rhythm unknown) (unknown) (no (unknown) (unknown) Rx Instructions: (units (unknown) date) unknown) (unknown) (no (unknown) (unknown) Sarcoidosis of (units (unknown) date) lung unknown) (unknown) (no (unknown) (unknown) See Dose (units (unkno wn) date) Instructions unknown) .ROUTE .MEDSUPPLY Qty: 2 0RF (unknown) (no (unknown) (unknown) Signed By: (units (unk nown) date) unknown) (unknown) (no (unknown) (unknown) Signed (units (unkno wn) date) unknown) (unknown) (no (unknown) (unknown) Sinus rhythm (units (u nknown) date) unknown) (unknown) (no (unknown) (unknown) Sister (units (unkno wn) date) Hypertension unknown) (unknown) (no (unknown) (unknown) Skin (units (unkno wn) date) unknown) (unknown) (no (unknown) (unknown) Smoking Status: (units (unknown) date) Never smoker unknown) (unknown) (no (unknown) (unknown) Social History (units (unknown) date) (Reviewed 09/10/22 unknown) @ 01:42 by Jesus Krishna DO) (unknown) (no (unknown) (unknown) Sodium 137 (units (unk nown) date) (137-145) mmol/L unknown) (unknown) (no (unknown) (unknown) Source: patient (units (unknown) date) unknown) (unknown) (no (unknown) (unknown) Stated complaint: (units (unknown) date) SOB requests to unknown) come (unknown) (no (unknown) (unknown) Substance Use (units ( unknown) date) Type: does not use unknown) (unknown) (no (unknown) (unknown) Surgical History (units (unknown) date) (Updated 06/27/21 unknown) @ 18:35 by Sterling Martin DO) (unknown) (no (unknown) (unknown) Surgical changes (units (unknown) date) and devices:? unknown) None.? (unknown) (no (unknown) (unknown) TAKE 1 TABLET BY (units (unknown) date) MOUTH ONCE DAILY unknown) (unknown) (no (unknown) (unknown) TECHNIQUE:? One (units (unknown) date) view of the chest unknown) was acquired.? (unknown) (no (unknown) (unknown) Temperature 97.6 (units (unknown) date) F 09/10/22 01:26 unknown) (unknown) (no (unknown) (unknown) Temperature 97.6 (units (unknown) date) F unknown) (unknown) (no (unknown) (unknown) Time Seen by (units (u nknown) date) Provider: 09/10/22 unknown) 01:16 (unknown) (no (unknown) (unknown) Total Bilirubin (units (unknown) date) 0.4 (0.2-1.3) unknown) mg/dL (unknown) (no (unknown) (unknown) Total Protein 7.2 (units (unknown) date) (6.3-8.2) g/dL unknown) (unknown) (no (unknown) (unknown) USE 1 AMPULE IN (units (unknown) date) NEBULIZER EVERY 6 unknown) HOURS NEEDED (unknown) (no (unknown) (unknown) Ventricular rate (units (unknown) date) is 64 unknown) (unknown) (no (unknown) (unknown) Vital Signs - 8 (units (unknown) date) hr unknown) (unknown) (no (unknown) (unknown) Vital Signs (units (un known) date) unknown) (unknown) (no (unknown) (unknown) Vital signs: (units (u nknown) date) unknown) (unknown) (no (unknown) (unknown) WBC 7.5 (units (unkno wn) date) (4.5-11.0) X103/uL unknown) (unknown) (no (unknown) (unknown) XR chest 1V Stat (units (unknown) date) unknown) (unknown) (no (unknown) (unknown) XRay Report (units (un known) date) unknown) (unknown) (no (unknown) (unknown) [Embedded Image (units (unknown) date) Not Available] unknown) (unknown) (no (unknown) (unknown) alcohol intake (units (unknown) date) frequency: 0-2 unknown) drinks per day (unknown) (no (unknown) (unknown) and below (units (unkn own) date) unknown) (unknown) (no (unknown) (unknown) and reduced (units (un known) date) inspiratory volume unknown) bilaterally.? With reference to the comparison (unknown) (no (unknown) (unknown) appear (units (unkno wn) date) unknown) (unknown) (no (unknown) (unknown) aspirin 81 mg (units ( unknown) date) Tablet,Chewable unknown) (unknown) (no (unknown) (unknown) aspirin 81 mg (units ( unknown) date) chewable tablet 81 unknown) mg PO DAILY 03/19/18 06/27/21 (unknown) (no (unknown) (unknown) benzonatate 100 (units (unknown) date) mg capsule 100 mg unknown) PO TID PRN cough #30 caps 03/19/18 (unknown) (no (unknown) (unknown) benzonatate (units (un known) date) [[place]] unknown) 100 mg capsule (unknown) (no (unknown) (unknown) better. Is at his (units (unknown) date) baseline unknown) respiratory status. (unknown) (no (unknown) (unknown) by current (units (unk nown) date) unknown) (unknown) (no (unknown) (unknown) carvedilol 6.25 (units (unknown) date) mg Tablet unknown) (unknown) (no (unknown) (unknown) carvedilol 6.25 (units (unknown) date) mg tablet 6.25 mg unknown) PO BID 03/19/18 06/27/21 (unknown) (no (unknown) (unknown) cholecalciferol (units (unknown) date) (vitamin D3) 10 unknown) 400 unit PO DAILY 03/19/18 06/27/21 (unknown) (no (unknown) (unknown) cholecalciferol (units (unknown) date) (vitamin D3) 400 unknown) unit Tablet (unknown) (no (unknown) (unknown) crutch (units (unkno wn) date) accessories #2 ea unknown) 04/20/18 (unknown) (no (unknown) (unknown) cyanocobalamin (units (unknown) date) (vitamin B-12) 500 unknown) 500 mcg PO DAILY 03/19/18 06/27/21 (unknown) (no (unknown) (unknown) cyanocobalamin (units (unknown) date) (vitamin B-12) 500 unknown) mcg Tablet (unknown) (no (unknown) (unknown) doxycycline (units (un known) date) hyclate 100 mg unknown) capsule 100 mg PO BID #14 caps 06/29/21 (unknown) (no (unknown) (unknown) doxycycline (units (un known) date) hyclate 100 mg unknown) capsule (unknown) (no (unknown) (unknown) household (units (unkn own) date) members: spouse unknown) (unknown) (no (unknown) (unknown) ipratropium 0.5 (units (unknown) date) mg-albuterol 3 mg unknown) 2 ml inhalation Q6HR PRN Shortness 06/27/21 (unknown) (no (unknown) (unknown) ipratropium-albut (units (unknown) date) dyana 0.5 mg-3 unknown) mg(2.5 mg base)/3 mL solution for nebulization (unknown) (no (unknown) (unknown) levothyroxine 75 (units (unknown) date) mcg tablet 75 mcg unknown) PO DAILY 06/27/21 06/27/21 (unknown) (no (unknown) (unknown) levothyroxine 75 (units (unknown) date) mcg tablet unknown) (unknown) (no (unknown) (unknown) mcg (400 unit) (units (unknown) date) tablet unknown) (unknown) (no (unknown) (unknown) mcg tablet (units (unk nown) date) unknown) (unknown) (no (unknown) (unknown) nifedipine 60 mg (units (unknown) date) Tablet Extended unknown) Release (unknown) (no (unknown) (unknown) nifedipine 60 mg (units (unknown) date) tablet,extended 60 unknown) mg PO BID 03/19/18 06/27/21 (unknown) (no (unknown) (unknown) omega (units (unkno wn) date) 2-alw-nwt-fish oil unknown) 1,000 mg (120 mg-180 mg) Capsule (unknown) (no (unknown) (unknown) omega (units (unkno wn) date) 1-cop-izs-fish oil unknown) 1,000 mg 1 cap PO QHS 03/19/18 06/27/21 (unknown) (no (unknown) (unknown) oxygen. Also has (units (unknown) date) home nebulizers. unknown) This evening started to have episodes of (unknown) (no (unknown) (unknown) pattern (units (unkno wn) date) unknown) (unknown) (no (unknown) (unknown) pneumothorax.? (units (unknown) date) unknown) (unknown) (no (unknown) (unknown) prazosin 2 mg (units ( unknown) date) Capsule unknown) (unknown) (no (unknown) (unknown) prazosin 2 mg (units ( unknown) date) capsule 1 mg PO unknown) BID 03/19/18 06/27/21 (unknown) (no (unknown) (unknown) prednisone 20 mg (units (unknown) date) Tablet unknown) (unknown) (no (unknown) (unknown) prednisone 20 mg (units (unknown) date) tablet 40 mg PO unknown) DAILY #4 tabs 06/29/21 (unknown) (no (unknown) (unknown) reduced (units (unkno wn) date) inspiratory unknown) volume. (unknown) (no (unknown) (unknown) release (units (unkno wn) date) unknown) (unknown) (no (unknown) (unknown) shortness of (units (u nknown) date) breath. He did not unknown) use any of his nebulizers. Things were getting (unknown) (no (unknown) (unknown) significantly (units ( unknown) date) unknown) (unknown) (no (unknown) (unknown) simvastatin 5 mg (units (unknown) date) Tablet unknown) (unknown) (no (unknown) (unknown) simvastatin 5 mg (units (unknown) date) tablet 5 mg PO QPM unknown) 03/19/18 06/27/21 (unknown) (no (unknown) (unknown) soln (units (unkno wn) date) unknown) (unknown) (no (unknown) (unknown) study from (units (unk nown) date) unknown) (unknown) (no (unknown) (unknown) unremarkable.? (units (unknown) date) unknown) (unknown) (no (unknown) (unknown) which improved (units (unknown) date) his symptoms. At unknown) the time my evaluation he states he feels much (unknown) (no (unknown) (unknown) worse so he (units (un known) date) contacted EMS. He unknown) did receive nebulizers by EMS prior to arrival (unknown) (no (unknown) (unknown) worsened (units (unkno wn) date) considering unknown) reduced inspiratory volume.? No pleural effusions or Result panel 7 (unknown) (no date) (unknown) (unknown) Negative (units (unkn own) unknown) (unknown) (no date) (unknown) (unknown) Negative (units (unkn own) unknown) Result panel 8 (unknown) (no (unknown) (unknown) (no value) (units (unk nown) date) unknown) (unknown) (no (unknown) (unknown) <Electronically (units (unknown) date) signed by Jesus Krishna D.O.> (unknown) (no (unknown) (unknown) (120 mg-180 mg) (units (unknown) date) capsule unknown) (unknown) (no (unknown) (unknown) (2.5 mg base)/3 (units (unknown) date) mL nebulization Of unknown) Breath (unknown) (no (unknown) (unknown) (DME) crutch (units (u nknown) date) accessories misc unknown) (unknown) (no (unknown) (unknown) (Tessalon Perles) (units (unknown) date) unknown) (unknown) (no (unknown) (unknown) 01:20 01:20 01:25 (units (unknown) date) unknown) (unknown) (no (unknown) (unknown) 01:26 (units (unkno wn) date) unknown) (unknown) (no (unknown) (unknown) [id number] (units (unkno wn) date) unknown) (unknown) (no (unknown) (unknown) 06/27/21 (units (unkno wn) date) unknown) (unknown) (no (unknown) (unknown) 1 cap PO QHS (units (u nknown) date) unknown) (unknown) (no (unknown) (unknown) 1 mg PO BID (units (un known) date) unknown) (unknown) (no (unknown) (unknown) 12/08/21 the (units (un known) date) degree of unknown) interstitial lung disease does not appear to have (unknown) (no (unknown) (unknown) 09/10/22 01:20 (units (unknown) date) unknown) (unknown) (no (unknown) (unknown) 09/10/22 01:25 (units (unknown) date) unknown) (unknown) (no (unknown) (unknown) 09/10/22 01:27 (units (unknown) date) unknown) (unknown) (no (unknown) (unknown) 09/10/22 01:28 (units (unknown) date) unknown) (unknown) (no (unknown) (unknown) 09/10/22 0316 (units ( unknown) date) unknown) (unknown) (no (unknown) (unknown) 09/10/22 09/10/22 (units (unknown) date) 09/10/22 unknown) Range/Units (unknown) (no (unknown) (unknown) 09/10/22 (units (unkno wn) date) unknown) (unknown) (no (unknown) (unknown) 100 mg PO BID (units ( unknown) date) Qty: 14 0RF unknown) (unknown) (no (unknown) (unknown) 100 mg PO TID PRN (units (unknown) date) (Reason: cough) unknown) Qty: 30 0RF (unknown) (no (unknown) (unknown) [address] (units (unknown) date) unknown) (unknown) (no (unknown) (unknown) 2 ml INHALATION (units (unknown) date) Q6HR PRN (Reason: unknown) Shortness Of Breath) (unknown) (no (unknown) (unknown) 40 mg PO DAILY (units (unknown) date) Qty: 4 0RF unknown) (unknown) (no (unknown) (unknown) 400 unit PO DAILY (units (unknown) date) unknown) (unknown) (no (unknown) (unknown) 5 mg PO QPM (units (un known) date) unknown) (unknown) (no (unknown) (unknown) 500 mcg PO DAILY (units (unknown) date) unknown) (unknown) (no (unknown) (unknown) 6.25 mg PO BID (units (unknown) date) unknown) (unknown) (no (unknown) (unknown) 60 mg PO BID (units (u nknown) date) unknown) (unknown) (no (unknown) (unknown) 75 mcg PO DAILY (units (unknown) date) unknown) (unknown) (no (unknown) (unknown) 81 mg PO DAILY (units (unknown) date) unknown) (unknown) (no (unknown) (unknown) ? (units (unkno wn) date) unknown) (unknown) (no (unknown) (unknown) ALT 6 (<50) IU/L (units (unknown) date) unknown) (unknown) (no (unknown) (unknown) AST 23 (17-59) (units (unknown) date) IU/L unknown) (unknown) (no (unknown) (unknown) Accession Number: (units (unknown) date) [id number] ?? unknown) (unknown) (no (unknown) (unknown) Acct:[id number] (units (unknown) date) unknown) (unknown) (no (unknown) (unknown) Activity (units (unkno wn) date) Restrictions/Addit unknown) ional Instructions: (unknown) (no (unknown) (unknown) Age/Sex: 82 / M (units (unknown) date) unknown) (unknown) (no (unknown) (unknown) Albumin 3.4 L (units ( unknown) date) (3.5-5.0) g/dL unknown) (unknown) (no (unknown) (unknown) Albumin/Globulin (units (unknown) date) Ratio 0.9 L unknown) (1.0-2.8) (unknown) (no (unknown) (unknown) Alkaline (units (unkno wn) date) Phosphatase 55 unknown) (38-126) U/L (unknown) (no (unknown) (unknown) Allergies (units (unkn own) date) unknown) (unknown) (no (unknown) (unknown) Allergy/AdvReac (units (unknown) date) Type Severity unknown) Reaction Status Date / Time (unknown) (no (unknown) (unknown) [place], [place] (units ( unknown) date) [id number] unknown) (unknown) (no (unknown) (unknown) Approved by: (units (u nknown) date) brandie Logan M.D. on 09/10/2022 at 1:58?? (unknown) (no (unknown) (unknown) As directed (units (un known) date) unknown) (unknown) (no (unknown) (unknown) Attestation: I (units (unknown) date) personally unknown) reviewed and interpreted this ECG as follows: (unknown) (no (unknown) (unknown) Auscultation: (units ( unknown) date) clear to unknown) auscultation bilaterally (unknown) (no (unknown) (unknown) BUN 24 H (9-20) (units (unknown) date) mg/dL unknown) (unknown) (no (unknown) (unknown) BUN/Creatinine (units (unknown) date) Ratio 27.3 H unknown) (6-22) (unknown) (no (unknown) (unknown) Baso # (Auto) 0 (units (unknown) date) (0-100) /uL unknown) (unknown) (no (unknown) (unknown) Baso % (Auto) 0.4 (units (unknown) date) (0-2) % unknown) (unknown) (no (unknown) (unknown) Blood Pressure (units (unknown) date) 174/75 H 09/10/22 unknown) 01:26 (unknown) (no (unknown) (unknown) Blood Pressure (units (unknown) date) 174/75 H unknown) (unknown) (no (unknown) (unknown) Bones and chest (units (unknown) date) wall:? No unknown) suspicious bony lesions.? Overlying soft tissues (unknown) (no (unknown) (unknown) COMPARISON:? (units (u nknown) date) Outside Film, CR, unknown) XR CHEST 1 VIEW, 12/08/2021, 14:22. (unknown) (no (unknown) (unknown) COVID19 -Nasal (units (unknown) date) RAPID/Pre-Proc unknown) Stat (unknown) (no (unknown) (unknown) Calcium 8.4 (units (un known) date) (8.4-10.2) mg/dL unknown) (unknown) (no (unknown) (unknown) Carbon Dioxide 49 (units (unknown) date) H* (22-32) mmol/L unknown) (unknown) (no (unknown) (unknown) Cardio (units (unkno wn) date) unknown) (unknown) (no (unknown) (unknown) Vicente Mckeon (units ( unknown) date) MD Angel unknown) [Primary Care Provider] (unknown) (no (unknown) (unknown) Chest x-ray: (units (u nknown) date) unknown) (unknown) (no (unknown) (unknown) Chief complaint: (units (unknown) date) Shortness of unknown) Breath/Dyspnea (unknown) (no (unknown) (unknown) Chloride 83 L (units ( unknown) date) (98-107) mmol/L unknown) (unknown) (no (unknown) (unknown) Chronic (units (unkno wn) date) respiratory unknown) failure with hypoxia (unknown) (no (unknown) (unknown) Clinical (units (unkno wn) date) Impression: unknown) (unknown) (no (unknown) (unknown) Complete Blood (units (unknown) date) Count AUTO DIFF unknown) Stat (unknown) (no (unknown) (unknown) Comprehensive (units ( unknown) date) Metabolic Panel unknown) Stat (unknown) (no (unknown) (unknown) Const (units (unkno wn) date) unknown) (unknown) (no (unknown) (unknown) Continue to take (units (unknown) date) all of your unknown) medications at home to include using your (unknown) (no (unknown) (unknown) Course (units (unkno wn) date) unknown) (unknown) (no (unknown) (unknown) Creatinine 0.88 (units (unknown) date) (0.66-1.25) mg/dL unknown) (unknown) (no (unknown) (unknown) : 1940 (units (unknown) date) Acct:[id number] unknown) (unknown) (no (unknown) (unknown) : 1940 (units (unknown) date) unknown) (unknown) (no (unknown) (unknown) Date of Service: (units (unknown) date) 09/10/22 unknown) (unknown) (no (unknown) (unknown) Departure (units (unkn own) date) unknown) (unknown) (no (unknown) (unknown) Dictated by: (units (u nknown) date) brandie Logan M.D. on 09/10/2022 at 1:57 ? ? (unknown) (no (unknown) (unknown) Discharge Plan (units (unknown) date) unknown) (unknown) (no (unknown) (unknown) Dose Instruction: (units (unknown) date) unknown) (unknown) (no (unknown) (unknown) Dyslipidemia (units (u nknown) date) unknown) (unknown) (no (unknown) (unknown) ECG Data (units (unkno wn) date) unknown) (unknown) (no (unknown) (unknown) ED Orders (units (unkn own) date) unknown) (unknown) (no (unknown) (unknown) EKG-12 Lead Stat (units (unknown) date) unknown) (unknown) (no (unknown) (unknown) ER Physician: (units ( unknown) date) Jesus Krishna unknown) D.O. (unknown) (no (unknown) (unknown) Effort + (units (unkno wn) date) Inspection: not unknown) labored and not tachypneic (unknown) (no (unknown) (unknown) Emergency Report (units (unknown) date) unknown) (unknown) (no (unknown) (unknown) Eos # (Auto) 0 (units (unknown) date) (0-450) /uL unknown) (unknown) (no (unknown) (unknown) Eos % (Auto) 0.2 (units (unknown) date) L (2-4) % unknown) (unknown) (no (unknown) (unknown) Estimated GFR > (units (unknown) date) 60 (>60) mL/min unknown) (unknown) (no (unknown) (unknown) Exam (units (unkno wn) date) unknown) (unknown) (no (unknown) (unknown) Extrem (units (unkno wn) date) unknown) (unknown) (no (unknown) (unknown) FINDINGS:? (units (unk nown) date) unknown) (unknown) (no (unknown) (unknown) Family History (units (unknown) date) (Reviewed 06/27/21 unknown) @ 18:35 by Sterling Martin DO) (unknown) (no (unknown) (unknown) General (units (unkno wn) date) unknown) (unknown) (no (unknown) (unknown) General: (units (unkno wn) date) cooperative and No unknown) ill appearing (unknown) (no (unknown) (unknown) General: no (units (un known) date) rashes or lesions unknown) noted (unknown) (no (unknown) (unknown) General: normal (units (unknown) date) to inspection unknown) (unknown) (no (unknown) (unknown) General: patient (units (unknown) date) alert, patient unknown) awake and moves all extremities (unknown) (no (unknown) (unknown) Globulin 3.8 (units (u nknown) date) (1.7-4.1) g/dL unknown) (unknown) (no (unknown) (unknown) Glucose 133 H (units ( unknown) date) (80-110) mg/dL unknown) (unknown) (no (unknown) (unknown) HENMT (units (unkno wn) date) unknown) (unknown) (no (unknown) (unknown) HPI - General (units ( unknown) date) Adult unknown) (unknown) (no (unknown) (unknown) HPI narrative: (units (unknown) date) unknown) (unknown) (no (unknown) (unknown) Hct 38.2 L (units (unk nown) date) (41-53) % unknown) (unknown) (no (unknown) (unknown) Head: normal to (units (unknown) date) inspection and unknown) normocephalic (unknown) (no (unknown) (unknown) Hgb 11.7 L (units (unk nown) date) (13.5-17.5) g/dL unknown) (unknown) (no (unknown) (unknown) History of (units (unk nown) date) Present Illness unknown) (unknown) (no (unknown) (unknown) Home Medications (units (unknown) date) unknown) (unknown) (no (unknown) (unknown) Hypertension (units (u nknown) date) unknown) (unknown) (no (unknown) (unknown) Hypothyroidism (units (unknown) date) unknown) (unknown) (no (unknown) (unknown) IMPRESSION:? (units (u nknown) date) Chronic unknown) interstitial lung disease, moderately severe, accentuated (unknown) (no (unknown) (unknown) INDICATIONS:? SOB (units (unknown) date) unknown) (unknown) (no (unknown) (unknown) Imaging Data (units (u nknown) date) unknown) (unknown) (no (unknown) (unknown) Initial Vital (units ( unknown) date) Signs unknown) (unknown) (no (unknown) (unknown) Initial Vital (units ( unknown) date) Signs: unknown) (unknown) (no (unknown) (unknown) Instructions: DI (units (unknown) date) for Shortness of unknown) Breath (unknown) (no (unknown) (unknown) Interpretation: (units (unknown) date) unknown) (unknown) (no (unknown) (unknown) [facility] (units (unknown) date) [address] [place] [address] unknown) [place] [address] (unknown) (no (unknown) (unknown) [facility] (units (unknown) date) unknown) (unknown) (no (unknown) (unknown) Lab Data (units (unkno wn) date) unknown) (unknown) (no (unknown) (unknown) Lab Results (units (un known) date) unknown) (unknown) (no (unknown) (unknown) Lab results (units (un known) date) reviewed: Yes I unknown) reviewed the patient's lab results. (unknown) (no (unknown) (unknown) Label Comments: (units (unknown) date) unknown) (unknown) (no (unknown) (unknown) Labs: (units (unkno wn) date) unknown) (unknown) (no (unknown) (unknown) Left axis (units (unkn own) date) deviation unknown) (unknown) (no (unknown) (unknown) Limitations: no (units (unknown) date) limitations unknown) (unknown) (no (unknown) (unknown) Loc: ED (units (unkno wn) date) unknown) (unknown) (no (unknown) (unknown) Lungs and (units (unkn own) date) pleura:? Lungs are unknown) abnormal with a chronic interstitial lung disease (unknown) (no (unknown) (unknown) Lymph # (Auto) (units (unknown) date) 1100 ([id number]) unknown) /uL (unknown) (no (unknown) (unknown) Lymph % (Auto) (units (unknown) date) 14.1 L (25-40) % unknown) (unknown) (no (unknown) (unknown) MCH 27.2 (26-34) (units (unknown) date) PG unknown) (unknown) (no (unknown) (unknown) MCHC 30.7 (30-36) (units (unknown) date) % unknown) (unknown) (no (unknown) (unknown) MCV 88.8 (80-100) (units (unknown) date) fL unknown) (unknown) (no (unknown) (unknown) MDM Narrative (units ( unknown) date) unknown) (unknown) (no (unknown) (unknown) MR#: [id number] (units (unknown) date) unknown) (unknown) (no (unknown) (unknown) Mediastinum:? (units ( unknown) date) Mediastinal unknown) contours appear normal.? Heart size is normal.? (unknown) (no (unknown) (unknown) Medical Decision (units (unknown) date) Making unknown) (unknown) (no (unknown) (unknown) Medical History (units (unknown) date) (Reviewed 09/10/22 unknown) @ 01:42 by Jesus Krishna DO) (unknown) (no (unknown) (unknown) Medical decision (units (unknown) date) making narrative: unknown) (unknown) (no (unknown) (unknown) Medication (units (unk nown) date) Instructions unknown) Recorded Confirmed (unknown) (no (unknown) (unknown) Medication (units (unk nown) date) Instructions unknown) Recorded (unknown) (no (unknown) (unknown) Mode of arrival: (units (unknown) date) EMS unknown) (unknown) (no (unknown) (unknown) [place] # (Auto) 500 (units (unknown) date) (0-900) /uL unknown) (unknown) (no (unknown) (unknown) [place] % (Auto) 6.0 (units (unknown) date) (3-14) % unknown) (unknown) (no (unknown) (unknown) Mother Diabetes (units (unknown) date) mellitus unknown) (unknown) (no (unknown) (unknown) NT-Pro-B (units (unkno wn) date) Natriuret Pep 247 unknown) (<450) pg/mL (unknown) (no (unknown) (unknown) NT-proBNP (units (unkn own) date) (BNP-Adult 18+) unknown) Stat (unknown) (no (unknown) (unknown) Neuro (units (unkno wn) date) unknown) (unknown) (no (unknown) (unknown) Neut # (Auto) (units ( unknown) date) 6000 ([id number]) unknown) /uL (unknown) (no (unknown) (unknown) Neut % (Auto) (units ( unknown) date) 79.3 H (50-75) % unknown) (unknown) (no (unknown) (unknown) No Action (units (unkn own) date) unknown) (unknown) (no (unknown) (unknown) No Known Drug (units ( unknown) date) Allergies Allergy unknown) Verified 09/10/22 01:26 (unknown) (no (unknown) (unknown) No ST T wave (units (u nknown) date) changes unknown) (unknown) (no (unknown) (unknown) No pertinent past (units (unknown) date) surgical history unknown) (unknown) (no (unknown) (unknown) Normal QRS (units (unk nown) date) unknown) (unknown) (no (unknown) (unknown) Normal QTC (units (unk nown) date) unknown) (unknown) (no (unknown) (unknown) Ordered: (units (unkno wn) date) unknown) (unknown) (no (unknown) (unknown) Ordering (units (unkno wn) date) Provider: unknown) Jesus Krishna D.O. (unknown) (no (unknown) (unknown) Orders (units (unkno wn) date) unknown) (unknown) (no (unknown) (unknown) Oxygen Delivery (units (unknown) date) Method 09/10/22 unknown) 01:26 (unknown) (no (unknown) (unknown) Oxygen Delivery (units (unknown) date) Method Room Air unknown) (unknown) (no (unknown) (unknown) PROCEDURE:? XR (units (unknown) date) CHEST 1V unknown) (unknown) (no (unknown) (unknown) Paroxysmal atrial (units (unknown) date) fibrillation unknown) (unknown) (no (unknown) (unknown) Patient (units (unkno wn) date) Disposition: Home unknown) (unknown) (no (unknown) (unknown) Patient History (units (unknown) date) unknown) (unknown) (no (unknown) (unknown) Patient is an (units ( unknown) date) 82-year-old male. 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 It was the (unknown) (no (unknown) (unknown) Patient: (units (unkno wn) date) Ellen Avendano unknown) MR#: [id number] (unknown) (no (unknown) (unknown) Patient: (units (unkno wn) date) TristinEllen unknown) (unknown) (no (unknown) (unknown) Plt Count 130 L (units (unknown) date) (150-400) X103/uL unknown) (unknown) (no (unknown) (unknown) Potassium 4.4 (units ( unknown) date) (3.4-5.1) mmol/L unknown) (unknown) (no (unknown) (unknown) Prescriptions: (units (unknown) date) unknown) (unknown) (no (unknown) (unknown) Previous Rx's (units ( unknown) date) unknown) (unknown) (no (unknown) (unknown) Procedure: XR (units ( unknown) date) chest 1V unknown) (unknown) (no (unknown) (unknown) Pulmonary (units (unkn own) date) embolism unknown) (unknown) (no (unknown) (unknown) Pulse Oximetry 98 (units (unknown) date) 09/10/22 01:26 unknown) (unknown) (no (unknown) (unknown) Pulse Oximetry 98 (units (unknown) date) unknown) (unknown) (no (unknown) (unknown) Pulse Rate 67 (units ( unknown) date) 09/10/22 01:26 unknown) (unknown) (no (unknown) (unknown) Pulse Rate 67 (units ( unknown) date) unknown) (unknown) (no (unknown) (unknown) RBC 4.31 L (units (unk nown) date) (4.5-5.9) X106/uL unknown) (unknown) (no (unknown) (unknown) RDW 14.5 (units (unkno wn) date) (11.6-14.8) % unknown) (unknown) (no (unknown) (unknown) ROS Unobtainable: (units (unknown) date) All systems unknown) reviewed + are unremarkable except as noted in HPI (unknown) (no (unknown) (unknown) RT Consult Eval (units (unknown) date) and Treat Now unknown) (unknown) (no (unknown) (unknown) Radiologist's (units ( unknown) date) Impression: unknown) (unknown) (no (unknown) (unknown) Rate: regular (units ( unknown) date) rate unknown) (unknown) (no (unknown) (unknown) Referrals: (units (unk nown) date) unknown) (unknown) (no (unknown) (unknown) Related Data (units (u nknown) date) unknown) (unknown) (no (unknown) (unknown) Resp (units (unkno wn) date) unknown) (unknown) (no (unknown) (unknown) Respiratory Rate (units (unknown) date) 14 09/10/22 01:26 unknown) (unknown) (no (unknown) (unknown) Respiratory Rate (units (unknown) date) 14 unknown) (unknown) (no (unknown) (unknown) Result diagrams: (units (unknown) date) unknown) (unknown) (no (unknown) (unknown) Review of Systems (units (unknown) date) unknown) (unknown) (no (unknown) (unknown) Rhythm: regular (units (unknown) date) rhythm unknown) (unknown) (no (unknown) (unknown) Rx Instructions: (units (unknown) date) unknown) (unknown) (no (unknown) (unknown) SARS-CoV-2 (PCR) (units (unknown) date) Negative unknown) (Negative) (unknown) (no (unknown) (unknown) Sarcoidosis of (units (unknown) date) lung unknown) (unknown) (no (unknown) (unknown) See Dose (units (unkno wn) date) Instructions unknown) .ROUTE .MEDSUPPLY Qty: 2 0RF (unknown) (no (unknown) (unknown) Shortness of (units (u nknown) date) breath unknown) (unknown) (no (unknown) (unknown) Signed By: (units (unk nown) date) unknown) (unknown) (no (unknown) (unknown) Signed (units (unkno wn) date) unknown) (unknown) (no (unknown) (unknown) Sinus rhythm (units (u nknown) date) unknown) (unknown) (no (unknown) (unknown) Sister (units (unkno wn) date) Hypertension unknown) (unknown) (no (unknown) (unknown) Skin (units (unkno wn) date) unknown) (unknown) (no (unknown) (unknown) Smoking Status: (units (unknown) date) Never smoker unknown) (unknown) (no (unknown) (unknown) Social History (units (unknown) date) (Reviewed 09/10/22 unknown) @ 01:42 by Jesus Krishna DO) (unknown) (no (unknown) (unknown) Sodium 137 (units (unk nown) date) (137-145) mmol/L unknown) (unknown) (no (unknown) (unknown) Source: patient (units (unknown) date) unknown) (unknown) (no (unknown) (unknown) Stated complaint: (units (unknown) date) SOB requests to unknown) come (unknown) (no (unknown) (unknown) Substance Use (units ( unknown) date) Type: does not use unknown) (unknown) (no (unknown) (unknown) Surgical History (units (unknown) date) (Updated 06/27/21 unknown) @ 18:35 by Sterling Martin DO) (unknown) (no (unknown) (unknown) Surgical changes (units (unknown) date) and devices:? unknown) None.? (unknown) (no (unknown) (unknown) TAKE 1 TABLET BY (units (unknown) date) MOUTH ONCE DAILY unknown) (unknown) (no (unknown) (unknown) TECHNIQUE:? One (units (unknown) date) view of the chest unknown) was acquired.? (unknown) (no (unknown) (unknown) Temperature 97.6 (units (unknown) date) F 09/10/22 01:26 unknown) (unknown) (no (unknown) (unknown) Temperature 97.6 (units (unknown) date) F unknown) (unknown) (no (unknown) (unknown) Time Seen by (units (u nkwn) date) Provider: 09/10/22 unknown) 01:16 (unknown) (no (unknown) (unknown) Total Bilirubin (units (unknown) date) 0.4 (0.2-1.3) unknown) mg/dL (unknown) (no (unknown) (unknown) Total Protein 7.2 (units (unknown) date) (6.3-8.2) g/dL unknown) (unknown) (no (unknown) (unknown) USE 1 AMPULE IN (units (unknown) date) NEBULIZER EVERY 6 unknown) HOURS NEEDED (unknown) (no (unknown) (unknown) Ventricular rate (units (unknown) date) is 64 unknown) (unknown) (no (unknown) (unknown) Vital Signs - 8 (units (unknown) date) hr unknown) (unknown) (no (unknown) (unknown) Vital Signs (units (un known) date) unknown) (unknown) (no (unknown) (unknown) Vital signs: (units (u nknown) date) unknown) (unknown) (no (unknown) (unknown) WBC 7.5 (units (unkno wn) date) (4.5-11.0) X103/uL unknown) (unknown) (no (unknown) (unknown) XR chest 1V Stat (units (unknown) date) unknown) (unknown) (no (unknown) (unknown) XRay Report (units (un known) date) unknown) (unknown) (no (unknown) (unknown) [Embedded Image (units (unknown) date) Not Available] unknown) (unknown) (no (unknown) (unknown) alcohol intake (units (unknown) date) frequency: 0-2 unknown) drinks per day (unknown) (no (unknown) (unknown) and below (units (unkn own) date) unknown) (unknown) (no (unknown) (unknown) and reduced (units (un known) date) inspiratory volume unknown) bilaterally.? With reference to the comparison (unknown) (no (unknown) (unknown) appear (units (unkno wn) date) unknown) (unknown) (no (unknown) (unknown) aspirin 81 mg (units ( unknown) date) Tablet,Chewable unknown) (unknown) (no (unknown) (unknown) aspirin 81 mg (units ( unknown) date) chewable tablet 81 unknown) mg PO DAILY 03/19/18 06/27/21 (unknown) (no (unknown) (unknown) benzonatate 100 (units (unknown) date) mg capsule 100 mg unknown) PO TID PRN cough #30 caps 03/19/18 (unknown) (no (unknown) (unknown) benzonatate (units (un known) date) [Tessalon Perles] unknown) 100 mg capsule (unknown) (no (unknown) (unknown) better. Is at his (units (unknown) date) baseline unknown) respiratory status. (unknown) (no (unknown) (unknown) but there (units (unkn own) date) baseline for him. unknown) He states he is breathing normal again. Hold on (unknown) (no (unknown) (unknown) by current (units (unk nown) date) unknown) (unknown) (no (unknown) (unknown) carvedilol 6.25 (units (unknown) date) mg Tablet unknown) (unknown) (no (unknown) (unknown) carvedilol 6.25 (units (unknown) date) mg tablet 6.25 mg unknown) PO BID 03/19/18 06/27/21 (unknown) (no (unknown) (unknown) cholecalciferol (units (unknown) date) (vitamin D3) 10 unknown) 400 unit PO DAILY 03/19/18 06/27/21 (unknown) (no (unknown) (unknown) cholecalciferol (units (unknown) date) (vitamin D3) 400 unknown) unit Tablet (unknown) (no (unknown) (unknown) crutch (units (unkno wn) date) accessories #2 ea unknown) 04/20/18 (unknown) (no (unknown) (unknown) cyanocobalamin (units (unknown) date) (vitamin B-12) 500 unknown) 500 mcg PO DAILY 03/19/18 06/27/21 (unknown) (no (unknown) (unknown) cyanocobalamin (units (unknown) date) (vitamin B-12) 500 unknown) mcg Tablet (unknown) (no (unknown) (unknown) department for (units (unknown) date) any new or unknown) worsening symptoms. (unknown) (no (unknown) (unknown) doxycycline (units (un known) date) hyclate 100 mg unknown) capsule 100 mg PO BID #14 caps 06/29/21 (unknown) (no (unknown) (unknown) doxycycline (units (un known) date) hyclate 100 mg unknown) capsule (unknown) (no (unknown) (unknown) further workup (units (unknown) date) for now and will unknown) transport patient back home. (unknown) (no (unknown) (unknown) household (units (unkn own) date) members: spouse unknown) (unknown) (no (unknown) (unknown) ipratropium 0.5 (units (unknown) date) mg-albuterol 3 mg unknown) 2 ml inhalation Q6HR PRN Shortness 06/27/21 (unknown) (no (unknown) (unknown) ipratropium-albut (units (unknown) date) dyana 0.5 mg-3 unknown) mg(2.5 mg base)/3 mL solution for nebulization (unknown) (no (unknown) (unknown) levothyroxine 75 (units (unknown) date) mcg tablet 75 mcg unknown) PO DAILY 06/27/21 06/27/21 (unknown) (no (unknown) (unknown) levothyroxine 75 (units (unknown) date) mcg tablet unknown) (unknown) (no (unknown) (unknown) mcg (400 unit) (units (unknown) date) tablet unknown) (unknown) (no (unknown) (unknown) mcg tablet (units (unk nown) date) unknown) (unknown) (no (unknown) (unknown) nebulizer (units (unkn own) date) treatments that unknown) were given to him by the ambulance that improved his (unknown) (no (unknown) (unknown) nebulizers. (units (un known) date) Contact your unknown) primary doctor for follow-up. Return to the emergency (unknown) (no (unknown) (unknown) nifedipine 60 mg (units (unknown) date) Tablet Extended unknown) Release (unknown) (no (unknown) (unknown) nifedipine 60 mg (units (unknown) date) tablet,extended 60 unknown) mg PO BID 03/19/18 06/27/21 (unknown) (no (unknown) (unknown) omega (units (unkno wn) date) 4-zdg-yld-fish oil unknown) 1,000 mg (120 mg-180 mg) Capsule (unknown) (no (unknown) (unknown) omega (units (unkno wn) date) 8-hcl-zcr-fish oil unknown) 1,000 mg 1 cap PO QHS 03/19/18 06/27/21 (unknown) (no (unknown) (unknown) oxygen. Also has (units (unknown) date) home nebulizers. unknown) This evening started to have episodes of (unknown) (no (unknown) (unknown) pattern (units (unkno wn) date) unknown) (unknown) (no (unknown) (unknown) pneumothorax.? (units (unknown) date) unknown) (unknown) (no (unknown) (unknown) prazosin 2 mg (units ( unknown) date) Capsule unknown) (unknown) (no (unknown) (unknown) prazosin 2 mg (units ( unknown) date) capsule 1 mg PO unknown) BID 03/19/18 06/27/21 (unknown) (no (unknown) (unknown) prednisone 20 mg (units (unknown) date) Tablet unknown) (unknown) (no (unknown) (unknown) prednisone 20 mg (units (unknown) date) tablet 40 mg PO unknown) DAILY #4 tabs 06/29/21 (unknown) (no (unknown) (unknown) reduced (units (unkno wn) date) inspiratory unknown) volume. (unknown) (no (unknown) (unknown) release (units (unkno wn) date) unknown) (unknown) (no (unknown) (unknown) shortness of (units (u nknown) date) breath. He did not unknown) use any of his nebulizers. Things were getting (unknown) (no (unknown) (unknown) significantly (units ( unknown) date) unknown) (unknown) (no (unknown) (unknown) simvastatin 5 mg (units (unknown) date) Tablet unknown) (unknown) (no (unknown) (unknown) simvastatin 5 mg (units (unknown) date) tablet 5 mg PO QPM unknown) 03/19/18 06/27/21 (unknown) (no (unknown) (unknown) soln (units (unkno wn) date) unknown) (unknown) (no (unknown) (unknown) study from (units (unk nown) date) unknown) (unknown) (no (unknown) (unknown) symptoms. Here in (units (unknown) date) the ER he does unknown) have abnormalities on his labs and chest x-ray (unknown) (no (unknown) (unknown) unremarkable.? (units (unknown) date) unknown) (unknown) (no (unknown) (unknown) which improved (units (unknown) date) his symptoms. At unknown) the time my evaluation he states he feels much (unknown) (no (unknown) (unknown) worse so he (units (un known) date) contacted EMS. He unknown) did receive nebulizers by EMS prior to arrival (unknown) (no (unknown) (unknown) worsened (units (unkno wn) date) considering unknown) reduced inspiratory volume.? No pleural effusions or Social History No information. Vital Signs No information.
--- NOTE | 2022-09-11 11:40 | ED Physician Documentation ---
PD HPI DYSPNEA - Stated complaint Stated Complaint: LOC - History obtained from History obtained from: EMS - Additional information Additional information: 82-year-old gentleman presents by ambulance. All of the history is from EMS because he is altered. What I am able to glean is that in the past he was in hospice for some sort of respiratory issue in [place] but no longer in hospice and reportedly currently full code. He went to [facility] yesterday for shortness of breath. We are trying to get records. Was discharged home by ambulance because he is on a baseline oxygen of 4 to 6 L. Today his called the ambulance because he was altered. He was noted to be tachypneic, tachycardic, and hypoxic prehospital with sats in the 70s on his 6 L of oxygen. Review of Systems Unable to obtain: Confused PD PAST MEDICAL HISTORY - Past Medical History Cardiovascular: Hypertension, High cholesterol Respiratory: Asthma, Tuberculosis Neuro: None Endocrine/Autoimmune: None GI: Ulcers : Renal insuffiency Psych: None Musculoskeletal: None Derm: None - Past Surgical History Ortho: Knee replacement - Present Medications Home Medications: Ambulatory Orders Medication Instructions Recorded Confirmed Albuterol [Ventolin Hfa] 2 puffs INH BID 08/04/13 04/10/22 Aspirin Chewable [[place] 1 tab PO DAILY 08/04/13 04/10/22 Aspirin] Carvedilol 6.25 mg PO BID 08/04/13 04/10/22 Fluticasone 44 Mcg [Flovent] 2 puffs INH BID 08/04/13 04/10/22 Nifedipine [Adalat cc] 60 mg PO DAILY 08/04/13 04/10/22 Prazosin [Minipress] 1 mg PO BID 08/04/13 04/10/22 Simvastatin [Zocor] 20 mg PO DAILY 08/04/13 04/10/22 allopurinoL [Zyloprim] 300 mg PO DAILY 08/04/13 04/10/22 Ferrous Sulfate 325 mg PO Q48H 11/10/19 04/10/22 - Allergies Allergies/Adverse Reactions: Allergies Allergy/AdvReac Type Severity Reaction Status Date / Time No Known Drug Allergies Allergy Verified 09/13/20 10:38 - Social History Smoking Status: Never smoker PD ED PE NORMAL - Vitals Vital signs reviewed: Yes - General General: Other (He is alert and follows simple commands. He is able to say his name and that he is in the hospital, he is unable to provide any other history and does not know the date or year.He is tachypneic.) - HEENT HEENT: PERRL, EOMI - Neck Neck: Supple, no meningeal sign, No bony TTP - Cardiac Cardiac: Other (Difficult to hear heart sounds because of tachypnea) - Respiratory Respiratory: Other (Tachypneic with mild rhonchi at both bases but relatively clear given his level of tachypnea.) - Abdomen Abdomen: Soft, Non tender - Back Back: No CVA TTP, No spinal TTP - Derm Derm: Normal color, Warm and dry - Extremities Extremities: No calf tenderness / cord, Other (3+ bilateral pitting pedal edema which is symmetric) - Neuro Eye Opening: Spontaneous Motor: Obeys Commands Verbal: Confused GCS Score: 14 Results - Vitals Vitals: Vital Signs - 24 hr 09/11/22 09/11/22 09/11/22 11:33 12:36 13:15 Temperature 36.5 C Heart Rate 82 84 85 Respiratory 28 H 20 Rate Blood Pressure 146/114 H 138/78 H O2 Saturation 100 100 If not protocol : Oxygen Flow, liters/minute 09/11/22 09/11/22 09/11/22 13:30 13:31 14:03 Temperature Heart Rate 89 90 82 Respiratory 26 H 28 H 17 Rate Blood Pressure 150/81 H 148/88 H O2 Saturation 100 100 If not protocol 100 : Oxygen Flow, liters/minute 09/11/22 09/11/22 09/11/22 14:30 15:00 15:30 Temperature Heart Rate 82 82 80 Respiratory 22 24 24 Rate Blood Pressure 130/78 146/84 H 141/93 H O2 Saturation 100 100 100 If not protocol : Oxygen Flow, liters/minute 09/11/22 16:10 Temperature Heart Rate 69 Respiratory 14 Rate Blood Pressure 117/66 O2 Saturation 42 L If not protocol : Oxygen Flow, liters/minute Oxygen O2 Source Room air Oxygen Flow Rate 6 - EKG (time done) 1145 Rate: Rate (enter#) (83) Rhythm: NSR (w pvcs), LAE, WAN Intervals: Normal MN Ischemia: Q waves (inferior). No: ST elevation c/w ischemia, ST depression - Labs Labs: Laboratory Tests 09/11/22 09/11/2222 11:51 11:51 11:51 WBC 7.6 RBC 4.63 L Hgb 12.4 L Hct 47.0 MCV 101.5 H MCH 26.8 L MCHC 26.4 L RDW 13.3 Plt Count 124 L MPV 10.0 Neut # (Auto) 5.5 Lymph # (Auto) 1.3 L [place] # (Auto) 0.7 Eos # (Auto) 0.0 Baso # (Auto) 0.0 Absolute Nucleated RBC 0.00 Nucleated RBC % 0.0 RBC Morph Micro Appear 2+ HYPOCHROMASIA VBG pH VBG pCO2 VBG pO2 VBG HCO3 VBG Total CO2 VBG O2 Saturation VBG Base Excess Sodium 144 Potassium 4.8 Chloride 86 L Carbon Dioxide 51 H* Anion Gap 7.0 BUN 20 Creatinine 0.9 Estimated GFR (MDRD) 81 L Glucose 118 H Lactic Acid 0.9 Calcium 9.5 Phosphorus 4.2 Magnesium 1.9 Total Bilirubin 0.6 AST 16 ALT < 10 L Alkaline Phosphatase 53 Troponin I High Sens B-Natriuretic Peptide Total Protein 7.1 Albumin 3.5 Globulin 3.6 Albumin/Globulin Ratio 1.0 SARS-CoV-2 (PCR) 09/11/22 09/11/22 09/11/22 11:51 11:51 11:51 WBC RBC Hgb Hct MCV MCH MCHC RDW Plt Count MPV Neut # (Auto) Lymph # (Auto) [place] # (Auto) Eos # (Auto) Baso # (Auto) Absolute Nucleated RBC Nucleated RBC % RBC Morph Micro Appear VBG pH 7.270 L VBG pCO2 119.3 H VBG pO2 28.2 VBG HCO3 53.6 H VBG Total CO2 57.2 H VBG O2 Saturation 53.8 L VBG Base Excess 20.4 H Sodium Potassium Chloride Carbon Dioxide Anion Gap BUN Creatinine Estimated GFR (MDRD) Glucose Lactic Acid Calcium Phosphorus Magnesium Total Bilirubin AST ALT Alkaline Phosphatase Troponin I High Sens 16.9 B-Natriuretic Peptide 79 Total Protein Albumin Globulin Albumin/Globulin Ratio SARS-CoV-2 (PCR) 09/11/22 09/11/22 14:27 15:08 WBC RBC Hgb Hct MCV MCH MCHC RDW Plt Count MPV Neut # (Auto) Lymph # (Auto) [place] # (Auto) Eos # (Auto) Baso # (Auto) Absolute Nucleated RBC Nucleated RBC % RBC Morph Micro Appear VBG pH 7.188 L VBG pCO2 139.4 H VBG pO2 35.1 VBG HCO3 51.8 H VBG Total CO2 56.1 H VBG O2 Saturation 62.7 VBG Base Excess 17.0 H Sodium Potassium Chloride Carbon Dioxide Anion Gap BUN Creatinine Estimated GFR (MDRD) Glucose Lactic Acid Calcium Phosphorus Magnesium Total Bilirubin AST ALT Alkaline Phosphatase Troponin I High Sens B-Natriuretic Peptide Total Protein Albumin Globulin Albumin/Globulin Ratio SARS-CoV-2 (PCR) NOT DETECTED - Rads (name of study) Single view chest x-ray showing worsening chronic interstitial lung disease compared with May 13, 2020 Radiology: EMP read contemporaneously CT angiography of chest Radiology: EMP read contemporaneously (No PE. Bronchiectasis and emphysematous changes with severe fibrosis with cystic changes and septal thickening, similar when compared to 03/31/2019 but with worsening septal thickening and superimposed groundglass opacities, likely superimposed pneumonia. ) PD MEDICAL DECISION MAKING - ED course ED course: History from by phone at 1216: He has hx sarcoidosis, was told he was doing ok. Would not wake up at 0800 today which is not normal. She does think he has mild dementia. He was on hospice for sarcoid about 1 year ago. He is usually on 6-7lpm O2 at home. He has a panel instrument repairer at [facility], Dr Nogueira. She is ok with intubation but not CPR. She plans to come to the hospital, but not until the cash applications associate comes to fix her toilet, about 3pm. Records from [facility] from yesterday received and reviewed. He went there for shortness of breath but was better in route with nebulizers. He was documented to have a fairly normal CBC save modest anemia with a hemoglobin of 11.7, chemistries were notable for carbon dioxide of 49 and a negative COVID test. Chest x-ray was done showing chronic interstitial lung disease and he was subsequently discharged home. 82-year-old gentleman with chronic sarcoidosis and COPD presents with delirium and encephalopathy which by process of illumination is probably related to profound acute on chronic hypercarbia with a venous CO2 of 119 with modest acidosis. His carbon dioxide has been trending up and today is 51. he was placed on BiPAP. Unfortunately no ICU bed is available here so the [facility] is calling around for transfer. We anticipate prolonged length of stay in the emergency department because of region wide hospital capacity issues. Update, 3:25 PM, now at the bedside. She [facility] we will [facility] to call [facility] as well. The health loading unit operator powder charging [facility] and [facility] not have [facility], they are full. Subsequently I rechecked his venous gas and his CO2 and acidosis had worsened from 119 up to 139 for the CO2 and his pH went down from 7.27->7.19. I discussed this with the , she had left but we talked on the phone. I discussed that the next step would be intubation and what that involved but given his profoundly severe lung disease I was pessimistic that this would result in the lasting cure and after discussion she wanted to transition to comfort care. He was kept comfortable and I was notified by the nurse he had . He was assessed at 1659, he had no respiratory activity, no breath sounds, no heart sounds, and pupils were fixed and dilated. Time of 165. - Critical Care Time(min): 55 Time Includes: Direct patient care, Review records, Reassess patient, Document care, Coordinate care, Family consult for tx dec Data interpretation: Labs, Pulse ox Procedures included in critical care time: Peripheral IV Procedures excluded from critical care time: EKG Departure - Departure Disposition: 20 Clinical Impression: Hypercarbia, End of life care Respiratory failure Qualifiers: Chronicity: acute on chronic Respiratory failure complication: hypoxia and hypercapnia Qualified Code(s): J96.21 - Acute and chronic respiratory failure with hypoxia; J96.22 - Acute and chronic respiratory failure with hypercapnia Discharge Date/Time: 09/11/22 18:31
[2022-09-11] MEDS ORDERED: iohexoL-300 100 ML VIAL ONE (11:59)
--- NOTE | 2022-09-11 12:06 | XRAY Report ---
PROCEDURE: Chest 1 View X-Ray INDICATIONS: dyspnea TECHNIQUE: One view of the chest was acquired. COMPARISON: FINDINGS: Surgical changes and devices: None. Lungs and pleura: Interstitial infiltrates throughout both lungs are significantly worse compared to a prior x-ray on 05/13/2020. No focal consolidation. No pneumothorax or pleural effusion. Mediastinum: Mediastinal contours appear normal. Heart size is normal. Bones and chest wall: No suspicious bony lesions. Overlying soft tissues appear unremarkable. IMPRESSION: Chronic interstitial disease, worse compared to the prior x-ray on 05/13/2020. Reviewed by: Parminder Funez on 09/11/2022 12:04 PM PDT Approved by: Parminder Funez on 09/11/2022 12:04 PM PDT Station ID: [id number]
[2022-09-11 12:11] LABS: VBG BASE EXCESS 20.4 mmol/L (-2 - +2); VBG HCO3 53.6 mmol/L (23-28); VBG OXYGEN SATURATION 53.8 % (60-80); VBG PCO2 119.3 mmHg (41-51); VBG PH 7.27 (7.31-7.41); VBG PO2 28.2 mmHg (25-47); VBG TOTAL CO2 57.2 mmol/L (24-29)
[2022-09-11 12:22] LABS: ALBUMIN 3.5 g/dL (3.2-5.5); ALKALINE PHOSPHATASE 53 IU/L (42-121); ALT ALANINE AMINOTRANSFERASE < 10 IU/L (10-60); AST ASPARTATE AMINOTRANSFERASE 16 IU/L (10-42); BILIRUBIN,TOTAL 0.6 mg/dL (0.2-1.0); BUN - BLOOD UREA NITROGEN 20 mg/dL (6-20); CALCIUM 9.5 mg/dL (8.5-10.3); CHLORIDE 86 mmol/L (101-111); CREATININE 0.9 mg/dL (0.6-1.2); GFR - MDRD 81 (>89); GLUCOSE 118 mg/dL (70-100); MAGNESIUM 1.9 mg/dL (1.7-2.8); PHOSPHORUS 4.2 mg/dL (2.5-4.6); POTASSIUM 4.8 mmol/L (3.5-5.0); SODIUM 144 mmol/L (135-145); TOTAL PROTEIN 7.1 g/dL (6.7-8.2)
[2022-09-11 12:26] LABS: CARBON DIOXIDE - CO2 51 mmol/L (21-32)
[2022-09-11 12:36] LABS: BASOPHILS % (AUTO) 0.3 %; EOSINOPHILS % (AUTO) 0.1 %; HGB - HEMOGLOBIN 12.4 g/dL (14.0-18.0); LYMPHOCYTES # (AUTO) 1.3 10^3/uL (1.5-3.5); LYMPHOCYTES % (AUTO) 16.7 %; MEAN CORPUSCULAR HEMOGLOBIN 26.8 pg (27.0-31.0); MEAN CORPUSCULAR HGB CONC 26.4 g/dL (32.0-36.0); MEAN CORPUSCULAR VOLUME 101.5 fL (80.0-94.0); MONOCYTES # (AUTO) 0.7 10^3/uL (0.0-1.0); MONOCYTES % (AUTO) 9.7 %; NEUTROPHILS # (AUTO) 5.5 10^3/uL (1.5-6.6); NEUTROPHILS % (AUTO) 72.8 %; PLT - PLATELET COUNT 124 10^3/uL (130-450); RED BLOOD COUNT 4.63 10^6/uL (4.70-6.10); RED CELL DISTRIBUTION WIDTH 13.3 % (12.0-15.0); WHITE BLOOD COUNT 7.6 x10^3/uL (4.8-10.8)
[2022-09-11 12:58] LABS: RBC MORPHOLOGY (MULTIPLE) 2+ HYPOCHROMASIA (NORMAL)
[2022-09-11] MEDS ORDERED: IPRATROPIUM/ALBUTEROL 3 ML NEB INH STA (13:14)
[2022-09-11] MEDS ORDERED: methylPREDNISolone SUCCINATE 125 MG/2 ML VIAL IVP STA (13:14)
--- NOTE | 2022-09-11 14:06 | CT Report ---
PROCEDURE: ANGIO CHEST W/WO INDICATIONS: dyspnea, pe protocol, wait for labs CONTRAST: 80ml Omnipaque 300 TECHNIQUE: After the administration of intravenous contrast, 2 mm axial images were acquired from the pulmonary apices to the posterior costophrenic angles during the arterial phase. In addition, 1 mm lung kernel and 5 mm soft tissue kernel reconstructions were performed. 3-dimensional coronal oblique maximum int ensity projection (MIP) reformats, 8 mm axial MIP, and 5 mm coronal and sagittal MPR reformats were t hen performed through the thorax. For radiation dose reduction, the following was used: automated exp osure control, adjustment of mA and/or kV according to patient size. COMPARISON: FINDINGS: Image quality: Excellent. Pulmonary arteries: Pulmonary arteries are normal in size, and demonstrate no intraluminal filling d efects to suggest central pulmonary embolism. Lungs and pleura: The lungs have atelectasis and emphysematous changes with septal thickening and cys tic honeycombing-like changes in the upper lung culver, similar to the prior x-ray on 03/31/2019, [place] there are superimposed groundglass opacities.. There is a right basilar infiltrate likely atelect asis. No pleural effusions or pneumothorax. Central and peripheral airways are patent. Mediastinum: Heart size is normal, without pericardial effusion. No mediastinal or hilar adenopathy . Thoracic aorta is normal in caliber and enhancement. Esophagus is normal in caliber, without hiat al hernia. Bones and chest wall: Multilevel degenerative changes of the thoracic spine with no focal abnormalit y. No suspicious bony lesions. Ribs and thoracic spine appear intact throughout. No axillary or sup raclavicular adenopathy. The thyroid is normal in size and there are no incidental findings. Abdomen: Visualized upper abdominal solid organs appear normal in the early arterial phase of enhanc ement. 5.5 cm simple right renal cyst. IMPRESSION: 1. No pulmonary embolism. Normal caliber thoracic aorta. 2. Bronchiectasis and emphysematous changes with severe fibrosis with cystic changes and septal thick ening, similar when compared to 03/31/2019 but with worsening septal thickening and superimposed groun dglass opacities, likely superimposed pneumonia. Reviewed by: Parminder Funez on 09/11/2022 2:05 PM PDT Approved by: Parminder Funez on 09/11/2022 2:05 PM PDT Station ID: [id number]
[2022-09-11 15:26] LABS: VBG HCO3 51.8 mmol/L (23-28); VBG OXYGEN SATURATION 62.7 % (60-80); VBG PCO2 139.4 mmHg (41-51); VBG PH 7.188 (7.31-7.41); VBG PO2 35.1 mmHg (25-47); VBG TOTAL CO2 56.1 mmol/L (24-29)
[2022-09-11] MEDS ORDERED: cefTRIAXone 1 GM in SODIUM CHLORIDE 0.9% MINIBAG 100 ML IV STA (15:34)
[2022-09-11] MEDS ORDERED: AZITHROMYCIN INJ 500 MG in SODIUM CHLORIDE 0.9% 250 ML IV STA (15:34)
[2022-09-11] MEDS ORDERED: MORPHINE 2 MG/ML CARPUJECT IVP STA (15:45)
[2022-09-11] MEDS ORDERED: LORazepam 2 MG/ML VIAL IVP STA (16:04)
[2022-09-11 16:11] VITALS: BP 117/66
[2022-09-11] MEDS ORDERED: iohexoL-300 100 ML VIAL IVP ONE (18:51)
== END 2022-09-11 18:31 | disposition expired ==
LOC: EDUNIT# → ED 11:23
DX: I10 Essential (primary) hypertension (principal); Z99.81 Dependence on supplemental oxygen; J96.22 Acute and chronic respiratory failure with hypercapnia; Z20.822 Contact with and (suspected) exposure to COVID-19
CPT/HCPCS: 36415; 71045; 71275; 80053; 82803; 83605; 83735; 83880; 84100; 84484; 85025; 87040; 87635; 93005; 94640; 94660; 96374; 96375; 99285; 99291; J2060; Q9967